=== PATIENT | male | born 1980 | race Caucasian/White ===

== ENCOUNTER 2020-01-24 17:47 | Inpatient (IN) | payer MEDICARE, MEDICAID, SELFPAY ==
[2020-01-24] VITALS (8 sets, daily range): BP systolic 108–154; BP diastolic 69–94; PULSE 88–111; RESP 18–23; TEMP 36.6–36.9; O2SAT 91–100; BMI 36.1
--- NOTE | 2020-01-24 17:57 | ECG_ITS ---
[facility] Test Date: 2020-01-24 Pat Name: Lobito Webber Department: Room: Gender: Male [employer] Retail: : 1980 Requested By: Raheem Maddox Order Number: [id number] Richie MD: Mona Cuellar M.D. Measurements Intervals [place] Rate: 108 P: 35 IA: 136 QRS: 77 QRSD: 89 T: 32 QT: 324 QTc: 436 Interpretive Statements SINUS TACHYCARDIA POSSIBLE LEFT ATRIAL ENLARGEMENT [-0.1mV P WAVE IN V1/V2] POSSIBLE INFERIOR MYOCARDIAL INFARCTION , OF INDETERMINATE AGE [30 ms Q WAVE IN II/aVF] ANTEROSEPTAL MYOCARDIAL INFARCTION , OF INDETERMINATE AGE [40+ ms Q WAVE IN V1-V4] Compared to ECG 05/25/2019 00:46:33 Sinus rhythm no longer present Myocardial infarct finding still present Electronically Signed On 01-24-2020 20:35:07 CDT by Mona Cuellar M.D. [id number]
--- NOTE | 2020-01-24 17:58 | XR_ITS ---
WS: [id number] Portable AP upright chest, 01/24/2020 Clinical Data: cp Comparison: Portable chest, 05/29/2019. Findings: No nodules, masses or effusions are seen. The heart is normal. The pulmonary vascularity is not increased. No pneumonia or pneumothorax is seen. Monitor leads are on the chest wall. XR/XR chest 1V portable [id number] Impression: Negative chest.
[2020-01-24 18:02] LABS: Glucose Point of Care 131 mg/dL (70-110)
[2020-01-24 18:13] LABS: Basophils # 0.1 10^3/uL (0.0-0.1); Basophils % 0.5 %; Eosinophils # 0.2 10^3/uL (0.0-0.8); Eosinophils % 0.8 %; Lymphocytes # 2.5 10^3/uL (0.8-4.8); Lymphocytes % 12.5 %; Mean Corpuscular HGB Conc 32.1 g/dL (30.0-36.0); Mean Corpuscular Volume 87.1 fL (80-94); Mean Platelet Volume 10.4 fL (7.4-10.4); Monocytes # 1.3 10^3/uL (0.2-0.9); Monocytes % 6.4 %; Neutrophils # 15.51 10^3/uL (1.8-7.7); Nucleated Red Blood Cells % 0 %; Platelet Count 285 10^3/cmm (130-400); Red Blood Count 6.43 10^6/uL (4.1-5.3); Red Cell Distribution Width 14.6 % (12.1-15.1); White Blood Count 19.6 10^3/uL (4.0-10.0)
--- NOTE | 2020-01-24 18:24 | ED_ITS ---
HPI - Chest Pain General: Chief Complaint: Chest Pain Stated Complaint: STEMI Time Seen by Provider: 01/24/20 17:57 Source: patient and EMS Mode of arrival: EMS Limitations: no limitations History of Present Illness: HPI narrative: 39-year-old male who has a history of coronary artery disease and had stents in the past. Patient states he started having chest pain today in the center of his chest along with some diaphoresis. Patient's pain is since resolved with nitro by EMS. Patient also received aspirin. Patient states he was seen at [facility] 3 days ago and they stopped his Plavix as a organist and him to a surgeon to have his gallbladder checked out. He states he is not taking his Plavix in 3 days. complaint: chest pain Onset (ago): hour(s) Associated symptoms: Deny abdominal pain, dyspnea, fever(s), nausea or vomiting Review of Systems Const: Denies: fever(s), chills, body aches or change in appetite Eyes: Denies: blurry vision or eye discomfort ENMT: Denies: throat pain or dental pain Card: Reports: chest pain Resp: Denies: dyspnea GI: Denies: abdominal pain, nausea, vomiting or diarrhea : Denies: dysuria Musc: Denies: neck pain or back pain Skin/Breast: Denies: rash Neuro: Denies: headache(s) Psych: Denies: depression Jordan/Lymph: Denies: easy bruising All/Imm: Denies: urticaria PFSH ED PFSH: Medical History (Updated 01/24/20 @ 21:23 by Javier Handy MD) Chronic GERD Coronary artery disease Diabetes Familial xanthomatosis Heart failure with reduced ejection fraction Hernia Hyperlipemia Hypertension Irritable bowel syndrome Myocardial infarction Stating that he was 19 years of age, cause unknown Nephrolithiasis Polysubstance abuse Sleep apnea Tobacco abuse Surgical History (Updated 01/24/20 @ 21:23 by Javier Handy MD) S/P cardiac cath 01/2019 100% occlusion of LAD proximal LAD Stented coronary artery January 2019, stent in LAD Family History (Updated 01/24/20 @ 21:23 by Javier Handy MD) Other Hyperlipidemia Hypertension Social History (Updated 01/24/20 @ 21:24 by Javier Handy MD) Smoking and tobacco status: light tobacco smoker cigarettes [ Other cigarette details: 1 pack/day for last 20 years ] Alcohol intake: current Substance/Drug Use: former Household members: spouse Housing: House Physical Exam Const: COMMON NORMALS: no acute distress, patient oriented x3 and healthy appearing HENMT: COMMON NORMALS: normocephalic and atraumatic HEAD & SCALP: normocephalic and atraumatic Eye: COMMON NORMALS: Equal, round and reactive pupils present and EOMs intact bilaterally PUPIL: Yes Equal, round and reactive pupils present Neck/C-Spine: COMMON NORMALS: full ROM and supple Chest: COMMONS NORMALS: normal inspection of the chest and normal palpation of entire chest wall Resp: COMMON NORMALS: normal respiratory effort, No retractions, No use of accessory muscles and clear to auscultation bilaterally AUSCULTATION: clear to auscultation bilaterally Cardio: COMMON NORMALS: regular rate, regular rhythm and No murmurs present (Cardio) RATE: regular rate RHYTHM: regular rhythm GI: COMMON NORMALS: Normal to inspection, nondistended, normoactive bowel sounds present, Soft to palpation, non-tender and no masses PALPATION: Yes Soft to palpation Extremity: COMMON NORMALS: normal to inspection and full ROM Neuro: COMMON NORMALS: patient oriented x3, moves all extremities and no focal motor deficits Psych: COMMON NORMALS: mental status grossly normal, Normal thought process present and cooperative THOUGHT PROCESS: Normal thought process present Skin: COMMON NORMALS: no rashes or lesions noted and no wounds GENERAL SKIN EXAM: no rashes or lesions noted Course Vital Signs: Vital signs: Vital Signs Temperature 98.4 F 01/24/20 17:48 Pulse Rate 88 01/24/20 20:00 Respiratory Rate 18 01/24/20 21:00 Blood Pressure 136/84 01/24/20 20:00 Pulse Oximetry 98 01/24/20 20:00 MDM - Chest Pain MDM Narrative: Medical decision making narrative: Patient presents here with a non-ST elevation PA. Patient had a delta change of 19 on the second troponin. EKGs here are normal. Patient has no abdominal pain. He does have a slight leukocytosis but no signs of infection. I spoke to hospitalist will admit at t his time. Lab Data: Labs: Lab Results 01/24/20 01/24/20 01/24/20 Range/Units 17:57 17:59 17:59 WBC 19.6 H (4.0-10.0) 10^3/ uL RBC 6.43 H (4.1-5.3) 10^6/u L Hgb 18.0 H (11.7-16.6) g/dL Hct 56.0 H (42.0-52.0) % MCV 87.1 (80-94) fL MCH 28.0 (28.0-34.0) pg MCHC 32.1 (30.0-36.0) g/dL RDW 14.6 (12.1-15.1) % Plt Count 285 (130-400) 10^3/c mm MPV 10.4 (7.4-10.4) fL Neut % (Auto) 79.0 % Lymph % (Auto) 12.5 % [place] % (Auto) 6.4 % Eos % (Auto) 0.8 % Baso % (Auto) 0.5 % Neut # (Auto) 15.51 H (1.8-7.7) 10^3/u L Lymph # (Auto) 2.5 (0.8-4.8) 10^3/u L [place] # (Auto) 1.3 H (0.2-0.9) 10^3/u L Eos # (Auto) 0.2 (0.0-0.8) 10^3/u L Baso # (Auto) 0.1 (0.0-0.1) 10^3/u L Nucleated RBC % (a uto) 0 % Nucleated RBCs # 0.0 /100WBC PT (10.5-13.3) SECO NDS INR (0.8-1.2) Sodium 138 (136-145) mmol/L Potassium 3.7 (3.5-5.1) mmol/L Chloride 103 (98-107) mmol/L Carbon Dioxide 19 L (22-29) mmol/L Anion Gap 19.7 H (5-19) BUN 14 (6-20) mg/dL Creatinine 0.9 (0.7-1.2) mg/dL GFR Calculation 93.5 (90-130) mL/min Glucose 127 H (65-115) mg/dL POC Glucose 131 (70-110) mg/dL Calculated Osmolal ity 284 L (285-295) mOsm/k g Calcium 9.6 (8.5-10.5) mg/dL Total Bilirubin 0.4 (0.15-1.2) mg/dL AST 14 (0-40) U/L ALT 18 (0-41) U/L Alkaline Phosphata se 83 (40-130) IU/L Troponin T Baselin e (0-15) ng/L Troponin T 120 Min [place] (0-15) ng/L Delta Troponin T (0-10) ABS# Total Protein 7.2 (6.6-8.7) g/dL Albumin 4.7 (3.5-5.2) g/dL Globulin 2.5 (1.3-4.6) g/dL Lipase 30 (13-60) U/L Urine Color (Yellow) Urine Appearance (CLEAR) Urine pH (5-7) Ur Specific Gravit y (1.005-1.030) Urine Protein (Negative) Urine Glucose (UA) (Normal) Urine Ketones (Negative) Urine Blood (Negative) Urine Nitrate (Negative) Urine Bilirubin (NEGATIVE) Urine Urobilinogen (Negative) mg/dL Ur Leukocyte Jolly ase (Negative) 01/24/20 01/24/20 01/24/20 Range/Units 17:59 17:59 19:40 WBC (4.0-10.0) 10^3/ uL RBC (4.1-5.3) 10^6/u L Hgb (11.7-16.6) g/dL Hct (42.0-52.0) % MCV (80-94) fL MCH (28.0-34.0) pg MCHC (30.0-36.0) g/dL RDW (12.1-15.1) % Plt Count (130-400) 10^3/c mm MPV (7.4-10.4) fL Neut % (Auto) % Lymph % (Auto) % [place] % (Auto) % Eos % (Auto) % Baso % (Auto) % Neut # (Auto) (1.8-7.7) 10^3/u L Lymph # (Auto) (0.8-4.8) 10^3/u L [place] # (Auto) (0.2-0.9) 10^3/u L Eos # (Auto) (0.0-0.8) 10^3/u L Baso # (Auto) (0.0-0.1) 10^3/u L Nucleated RBC % (a uto) % Nucleated RBCs # /100WBC PT 13.00 (10.5-13.3) SECO NDS INR 0.95 (0.8-1.2) Sodium (136-145) mmol/L Potassium (3.5-5.1) mmol/L Chloride (98-107) mmol/L Carbon Dioxide (22-29) mmol/L Anion Gap (5-19) BUN (6-20) mg/dL Creatinine (0.7-1.2) mg/dL GFR Calculation (90-130) mL/min Glucose (65-115) mg/dL POC Glucose (70-110) mg/dL Calculated Osmolal ity (285-295) mOsm/k g Calcium (8.5-10.5) mg/dL Total Bilirubin (0.15-1.2) mg/dL AST (0-40) U/L ALT (0-41) U/L Alkaline Phosphata se (40-130) IU/L Troponin T Baselin e 9 (0-15) ng/L Troponin T 120 Min [place] 28.49 H (0-15) ng/L Delta Troponin T 19.49 H* (0-10) ABS# Total Protein (6.6-8.7) g/dL Albumin (3.5-5.2) g/dL Globulin (1.3-4.6) g/dL Lipase (13-60) U/L Urine Color (Yellow) Urine Appearance (CLEAR) Urine pH (5-7) Ur Specific Gravit y (1.005-1.030) Urine Protein (Negative) Urine Glucose (UA) (Normal) Urine Ketones (Negative) Urine Blood (Negative) Urine Nitrate (Negative) Urine Bilirubin (NEGATIVE) Urine Urobilinogen (Negative) mg/dL Ur Leukocyte Jolly ase (Negative) 01/24/20 Range/Units 19:45 WBC (4.0-10.0) 10^3/ uL RBC (4.1-5.3) 10^6/u L Hgb (11.7-16.6) g/dL Hct (42.0-52.0) % MCV (80-94) fL MCH (28.0-34.0) pg MCHC (30.0-36.0) g/dL RDW (12.1-15.1) % Plt Count (130-400) 10^3/c mm MPV (7.4-10.4) fL Neut % (Auto) % Lymph % (Auto) % [place] % (Auto) % Eos % (Auto) % Baso % (Auto) % Neut # (Auto) (1.8-7.7) 10^3/u L Lymph # (Auto) (0.8-4.8) 10^3/u L [place] # (Auto) (0.2-0.9) 10^3/u L Eos # (Auto) (0.0-0.8) 10^3/u L Baso # (Auto) (0.0-0.1) 10^3/u L Nucleated RBC % (a uto) % Nucleated RBCs # /100WBC PT (10.5-13.3) SECO NDS INR (0.8-1.2) Sodium (136-145) mmol/L Potassium (3.5-5.1) mmol/L Chloride (98-107) mmol/L Carbon Dioxide (22-29) mmol/L Anion Gap (5-19) BUN (6-20) mg/dL Creatinine (0.7-1.2) mg/dL GFR Calculation (90-130) mL/min Glucose (65-115) mg/dL POC Glucose (70-110) mg/dL Calculated Osmolal ity (285-295) mOsm/k g Calcium (8.5-10.5) mg/dL Total Bilirubin (0.15-1.2) mg/dL AST (0-40) U/L ALT (0-41) U/L Alkaline Phosphata se (40-130) IU/L Troponin T Baselin e (0-15) ng/L Troponin T 120 Min [place] (0-15) ng/L Delta Troponin T (0-10) ABS# Total Protein (6.6-8.7) g/dL Albumin (3.5-5.2) g/dL Globulin (1.3-4.6) g/dL Lipase (13-60) U/L Urine Color Yellow (Yellow) Urine Appearance Clear (CLEAR) Urine pH 5 (5-7) Ur Specific Gravit y 1.025 (1.005-1.030) Urine Protein Neg (Negative) Urine Glucose (UA) 4+ H (Normal) Urine Ketones 1+ H (Negative) Urine Blood Neg (Negative) Urine Nitrate Negative (Negative) Urine Bilirubin Neg (NEGATIVE) Urine Urobilinogen Neg (Negative) mg/dL Ur Leukocyte Jolly ase Negative (Negative) Imaging Data^: CXR: Attestation: I personally reviewed and interpreted this imaging study as follows: My impression: no acute abnormality EKG Data^: EKG 1: Attestation: I personally reviewed and interpreted this EKG as follows: EKG interpretation date: 01/24/20 EKG interpretation time: 18:00 Interpretation: sinus tach hr [address] or t wave changes compared to old ekg qrs 89 qtc 388 EKG 2: Attestation: I personally reviewed and interpreted this EKG as follows: EKG interpretation date: 01/24/20 EKG interpretation time: 20:07 Interpretation: nsr hr [address] or t wave abnormalities qrs 92 qtc 398 Discharge Plan Discharge Admit Provider: Javier Handy Coding Level of Care Code ED Air Shovel Operator for Chg Fwd Exam Comprehensive
[2020-01-24 18:35] LABS: INR 0.95 (0.8-1.2)
[2020-01-24] MEDS: sodium chloride 0.9% 1,000 ML 75 ML IV (18:35)
[2020-01-24 18:44] LABS: Alanine Aminotransferase 18 U/L (0-41); Albumin Level 4.7 g/dL (3.5-5.2); Alkaline Phosphatase 83 IU/L (40-130); Anion Gap 19.7 (5-19); Aspartate Amino Transferase 14 U/L (0-40); Blood Urea Nitrogen 14 mg/dL (6-20); Calcium 9.6 mg/dL (8.5-10.5); Carbon Dioxide 19 mmol/L (22-29); Chloride 103 mmol/L (98-107); Globulin 2.5 g/dL (1.3-4.6); Glomerular Filtration Rate 93.5 mL/min (90-130); Glucose 127 mg/dL (65-115); Lipase 30 U/L (13-60); Osmolality Calculated 284 mOsm/kg (285-295); Potassium 3.7 mmol/L (3.5-5.1); Sodium 138 mmol/L (136-145); Total Bilirubin 0.4 mg/dL (0.15-1.2); Total Protein 7.2 g/dL (6.6-8.7); Troponin(5th) Baseline 9 ng/L (0-15)
--- NOTE | 2020-01-24 19:58 | ECG_ITS ---
[facility] Test Date: 2020-01-24 Pat Name: Lobito Webber Department: Room: 105 Gender: Male Graduate Student: : 1980 Requested By: Raheem Maddox Order Number: [id number] Richie MD: Isaias Coronel M.D. Measurements Intervals [place] Rate: 89 P: 53 [place]: 163 QRS: 73 QRSD: 92 T: 77 QT: 352 QTc: 428 Interpretive Statements SINUS RHYTHM ANTERIOR MYOCARDIAL INFARCTION , OF INDETERMINATE AGE [40+ ms Q WAVE AND/OR ST/T ABNORMALITY IN V3/V4] Compared to ECG 01/24/2020 18:00:48 Sinus tachycardia no longer present Myocardial infarct finding still present Electronically Signed On 01-25-2020 17:08:40 CDT by Isaias Coronel M.D. [id number]
[2020-01-24 20:03] LABS: Add Urine Microscopic? NO
--- NOTE | 2020-01-24 20:04 | PC.NURSE ---
ekg done 1958 and shown to ER doctor
[2020-01-24 20:15] LABS: Bilirubin Urine Neg (NEGATIVE); Blood Urine Neg (Negative); Glucose Urine UA 4+ (Normal); Ketones Urine 1+ (Negative); Leukocyte Esterase Urine Negative (Negative); Nitrate Urine Negative (Negative); Protein Urine Neg (Negative); Specific Gravity, Urine 1.025 (1.005-1.030); Urine Appearance Clear (CLEAR); Urine Color Yellow (Yellow); Urobilinogen Urine Neg (Negative); pH Urine 5 (5-7)
[2020-01-24 20:20] LABS: Troponin 5 2HR 28.49 ng/L (0-15)
[2020-01-24 20:27] LABS: Troponin 5 2HR Delta 19.49 ABS# (0-10)
--- NOTE | 2020-01-24 20:27 | PC.NURSE ---
19.49 DELTA TROP REPORTED VIA DUC IN LAB.
--- NOTE | 2020-01-24 21:00 | PM.HP ---
Providers/Chief Complaint Primary Care Provider: Mona Cuellar MD Chief Complaint: STEMI History of Present Illness Lobito Webber is a 39 year old male who has established coronary disease status post stent LAD January 2019, familial dyslipidemia, history of ID in his early 20s, coming in today with chief complaint of chest pain. Patient is stating that he was working outside in his tractor and after his work he was resting in his chair around 4 PM when he started experiencing substernal chest pain, he would describe it as pressure-like sensation radiating towards his shoulder blades and both arms with some numbness in his fingers, he did not notice any diaphoresis, nausea or vomiting. Patient lasted for about 4 hours until he arrived in the ER and received sublingual nitroglycerin and full dose aspirin. Patient is stating that this chest pain is similar to the one when he had stent placed. Is denying shortness of breath, orthopnea, PND. He smoking 1 pack/day, denies cocaine or IV drug abuse. Fairly active for his age. For last couple of days he has stopped taking his metformin and Plavix, there was some consideration for cholecystitis. Diagnostics in the ER revealed Normal hemodynamics, significant delta troponin, currently patient is chest pain-free, EKG showing chronic infarct changes in anterior leads He has received therapeutic dose of Lovenox, I would start him on loading dose of Plavix, start Lovenox Case discussed with Dr. Coronel who will evaluate him in the morning For his bradycardia he follow-up with Dr. Cuellar, as per the patient no cause of bradycardia has been established. Currently heart rate is in 80s normal sinus rhythm. Review of Systems Const: Denies: fever(s), chills or body aches Eyes: Denies: change in vision ENMT: Denies: throat pain Card: Reports: chest pain and dyspnea on exertion; Denies: irregular heart rhythm or orthopnea Resp: Denies: dyspnea GI: Denies: abdominal pain, nausea or vomiting : Denies: flank pain Musc: Denies: neck pain Skin/Breast: Denies: rash Neuro: Denies: headache(s) Psych: Denies: anxiety Endo: Denies: polyuria Jordan/Lymph: Denies: easy bruising All/Imm: Denies: urticaria Medications/Allergies Home Medications Medication Instructions Recorded Confirmed Last Taken Type aspirin 81 mg tablet,delayed 81 mg PO DAILY tab 07/12/19 01/24/20 01/24/20 History release carvedilol 3.125 mg tablet 3.125 mg PO BID 07/12/19 01/24/20 01/24/20 History clopidogrel 75 mg tablet 75 mg PO DAILY tab 07/12/19 01/24/20 01/21/20 History fenofibrate nanocrystallized 145 145 mg PO DAILY tab 07/12/19 01/24/20 01/24/20 History mg tablet furosemide 20 mg tablet 20 mg PO QAM PRN 07/12/19 01/24/20 Unknown History metformin 500 mg tablet 1,000 mg PO DAILY 07/12/19 01/24/20 01/21/20 History nitroglycerin 0.4 mg sublingual 0.4 mg SUBLINGUAL Q5M 07/12/19 01/24/20 01/24/20 History tablet potassium chloride 20 mEq 20 meq PO DAILY tab 07/12/19 01/24/20 Unknown History tablet,extended release(part/cryst) simvastatin 10 mg tablet 10 mg PO DAILY tab 07/12/19 01/24/20 01/24/20 History empagliflozin 10 mg tablet 10 mg PO QAM #90 tab 09/20/19 01/24/20 01/24/20 Rx losartan 25 mg tablet 25 mg PO DAILY #90 tab 11/24/19 01/24/20 01/24/20 Rx omeprazole 20 mg PO DAILY 01/24/20 01/24/20 01/24/20 History sertraline 50 mg PO DAILY 01/24/20 01/24/20 01/24/20 History Allergies Allergy/AdvReac Type Severity Reaction Status Date / Time lisinopril Allergy cough Verified 01/24/20 21:46 PFSH Acute PFSH: Medical History Bradycardia Cholelithiasis Chronic GERD Coronary artery disease Diabetes Familial xanthomatosis Heart failure with reduced ejection fraction Hernia Hyperlipemia Hypertension Irritable bowel syndrome Myocardial infarction Stating that he was 19 years of age, cause unknown Nephrolithiasis Polysubstance abuse Pulmonary nodule 6 mm Sleep apnea Spleen enlarged Tobacco abuse Surgical History S/P cardiac cath 01/2019 100% occlusion of LAD proximal LAD Stented coronary artery January 2019, stent in LAD Family History Other Hyperlipidemia Hypertension Social History Smoking and tobacco status: light tobacco smoker cigarettes [ Other cigarette details: 1 pack/day for last 20 years ] Alcohol intake: current Substance/Drug Use: former Household members: spouse Housing: House Vitals/I&O/Wt Last Vital Signs Temp 98.4 F 01/24/20 17:48 Pulse 88 01/24/20 20:00 Resp 20 H 01/24/20 20:00 BP 136/84 01/24/20 20:00 Pulse Ox 98 01/24/20 20:00 Weight last 48 hrs Weight 107.955 kg Physical Exam Narrative: EXAM NARRATIVE: Patient sitting in his bed without any active chest pain No active respiratory distress Abdomen soft nontender nondistended bowel sound present negative Ortiz sign S1, S2 no signs of tachycardia bradycardia or heart failure No positive JVD appreciated Neurologically nonfocal exam GCS 15 EOMI, PERRLA Bilateral breath sounds without any adventitious sounds No ischemia getting ulcer of lower extremities Saturating well on room air Xanthomas around eyelids bilaterally Data : 01/24/20 17:59 01/24/20 17:59 A&P Assessment and plan (1) NSTEMI (non-ST elevated myocardial infarction): Status: Acute (2) Familial xanthomatosis: Status: Acute (3) Nicotine dependence: Status: Acute Additional A&P Information Non-ST segment elevation ID Typical chest pain substernal relieved with nitro lasted for about 4 hours, history of established coronary disease, family history positive, chest pain radiating towards his shoulder blades without any radial radial delay, no hemodynamic compromise Case discussed with Dr. Coronel who will evaluate him in the morning Significant delta troponin without new ischemic EKG changes, Therapeutic dose of Lovenox given, loading dose of Plavix given, I will keep him n.p.o. in case he would require an angiogram in the morning Would obtain U tox Nicotine dependence: Counseled on smoking cessation explained benefits Familial xanthomas: Patient is on statin and fenofibrate regimen Full code N.p.o. 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
[2020-01-24] MEDS: enoxaparin 100 mg/mL Syringe SUBCUT (21:24)
--- NOTE | 2020-01-24 21:51 | ECG_ITS ---
[facility] Test Date: 2020-01-25 Pat Name: Lobito Webber Department: Room: 105 Gender: Male Business Support Assistant: : 1980 Requested By: Javier Handy Order Number: [id number] Richie MD: Isaias Coronel M.D. Measurements Intervals [place] Rate: 84 P: 48 VT: 154 QRS: 68 QRSD: 94 T: 63 QT: 357 QTc: 424 Interpretive Statements SINUS RHYTHM ANTEROLATERAL MYOCARDIAL INFARCTION [40+ ms Q WAVE IN I/aVL/V3-V6], OF INDETERMINATE AGE Compared to ECG 01/24/2020 20:07:44 No significant changes Electronically Signed On 01-25-2020 17:08:45 CDT by Isaias Coronel M.D. [id number]
--- NOTE | 2020-01-24 21:54 | PC.NURSE ---
Patient arrived to the floor after report was received via phone from ED. Patient is alert and oriented and ambulatory. Patient is on room air. Dr. Handy notified of patient complaining of heartburn and asking for something for heartburn that he states he has had for a few days. Dr. Handy also notified of patient complaining of pain 5/10 between the shoulder blades. Patient has been oriented to his room and call light within reach. Will monitor.
--- NOTE | 2020-01-24 22:01 | PC.NURSE ---
Patient states I always have chest pain, but it got worse today. Patient states my oxygen dips at night. I was set up to have a sleep study, but they canceled on me or something, I can't remember.
[2020-01-24 22:06] LABS: D Dimer 0.29 ug/mIFEU (0-0.59)
--- NOTE | 2020-01-24 22:07 | PC.NURSE ---
Dr. Hadny notified of patient received 100 mg of Lovenox in ED. There is 110 mg dose due for now. Ordered to change dose to start in the morning.
[2020-01-24] MEDS: clopidogrel 300 mg Tablet PO (22:11)
[2020-01-24] MEDS: atorvastatin 40 mg Tablet 80 MG PO (22:51)
[2020-01-24] MEDS: nitroglycerin 0.4 mg sublingual Tablet SUBLINGUAL (22:52)
[2020-01-24] MEDS: lidocaine 2% viscous 15 ML, aluminum-mag hydrox-simethicon 30 ML, sucralfate oral liq 1 GM PO (22:52)
[2020-01-25] VITALS (50 sets, daily range): BP systolic 93–131; BP diastolic 53–89; PULSE 68–89; RESP 16–28; TEMP 36.5–37; O2SAT 90–97
[2020-01-25 00:24] LABS: Troponin 5 6HR 154.4 ng/L (0-15); Troponin 5 6HR Delta 145.4 ng/L (0-12)
--- NOTE | 2020-01-25 01:56 | PC.NURSE ---
Patient was asked if he is still in pain and states no. Patient states I'm just really craving a cigarette. Patient has been educated on hospital smoking policy and verbalized understanding. Patient refused nicotine patch stating, I need to try to quit on my own this time.
[2020-01-25 05:55] LABS: Anion Gap 14.7 (5-19); Blood Urea Nitrogen 15 mg/dL (6-20); Calcium 8.9 mg/dL (8.5-10.5); Carbon Dioxide 22 mmol/L (22-29); Chloride 102 mmol/L (98-107); Glomerular Filtration Rate 124.9 mL/min (90-130); Glucose 116 mg/dL (65-115); Osmolality Calculated 277 mOsm/kg (285-295); Potassium 3.7 mmol/L (3.5-5.1); Sodium 135 mmol/L (136-145)
[2020-01-25 06:03] LABS: Basophils # 0.1 10^3/uL (0.0-0.1); Basophils % 0.5 %; Eosinophils # 0.2 10^3/uL (0.0-0.8); Eosinophils % 1.5 %; Hematocrit 51.5 % (42.0-52.0); Hemoglobin 16.3 g/dL (11.7-16.6); Lymphocytes # 3.4 10^3/uL (0.8-4.8); Mean Corpuscular HGB Conc 31.7 g/dL (30.0-36.0); Mean Corpuscular Hemoglobin 27.6 pg (28.0-34.0); Mean Corpuscular Volume 87.3 fL (80-94); Mean Platelet Volume 11.1 fL (7.4-10.4); Monocytes # 1.1 10^3/uL (0.2-0.9); Monocytes % 8.7 %; Neutrophils # 8.17 10^3/uL (1.8-7.7); Neutrophils % 62.8 %; Nucleated Red Blood Cells % 0 %; Platelet Count 254 10^3/cmm (130-400); Red Cell Distribution Width 14.7 % (12.1-15.1)
[2020-01-25] MEDS: pantoprazole DR 40 mg Tablet PO (08:22)
[2020-01-25] MEDS: aspirin 81 mg EC Tablet PO (08:22)
[2020-01-25] MEDS: fenofibrate 145 mg Tablet PO (08:22)
[2020-01-25] MEDS: clopidogrel 75 mg Tablet PO (08:25)
[2020-01-25] MEDS: carvedilol 3.125 mg Tablet PO ×2 (08:25→17:10)
[2020-01-25] MEDS: losartan 50 mg Tablet 25 MG PO (08:25)
[2020-01-25] MEDS: enoxaparin 120 mg/0.8 mL Syringe 110 MG SUBCUT (08:27)
--- NOTE | 2020-01-25 09:11 | P.CONIM_ITS ---
Providers/Reason For Consult Consulting Physican/Specialty*: Cardiovascular medicine Reason for Consult*: Elevated troponin with chest pain Attending Physician: Tom Castro MD Primary Care Provider: Mona Cuellar MD History of Present Illness History of Present Illness Lobito Webber is a 39 year old male who has premature coronary artery disease. He was admitted last evening with chest discomfort which occurred at rest and went down both arms and then up to his jaw and through to his back. He cannot remember whether this was the same pain he had in January of last year when he had a stent placed to his LAD. The procedure done at that time was originally attempted through the right radial artery but difficulty placing the catheter it required them to switch to the right common femoral artery. His first troponin was 9, the second 28.4 and the third 254. He has some mild ST segment elevation in leads V1 through V4 but has a previous old anterior wall PR in this distribution. When he had a stent placed a year ago his LAD was occluded. He was admitted in February of last year with chest pain and then in April of last year with chest discomfort and hypoxic respiratory failure thought secondary to sleep apnea. He has been free of chest pain since he was in the emergency room. He remains free of pain this morning. He states that he has never really held down a job. He has been disabled. He does have a history of glucose intolerance, hypertensi on and currently is a smoker. Previously has had a history of polysubstance abuse including alcohol. Review of Systems General: Reports: 10 or more systems reviewed and unremarkable except in HPI and below Meds/Allergies Home Medications and Allergies Home Medications Medication Instructions Recorded Confirmed Last Taken Type aspirin 81 mg tablet,delayed 81 mg PO DAILY tab 07/12/19 01/24/20 01/24/20 History release carvedilol 3.125 mg tablet 3.125 mg PO BID 07/12/19 01/24/20 01/24/20 History clopidogrel 75 mg tablet 75 mg PO DAILY tab 07/12/19 01/24/20 01/21/20 History fenofibrate nanocrystallized 145 145 mg PO DAILY tab 07/12/19 01/24/20 01/24/20 History mg tablet furosemide 20 mg tablet 20 mg PO QAM PRN 07/12/19 01/24/20 Unknown History metformin 500 mg tablet 1,000 mg PO DAILY 07/12/19 01/24/20 01/21/20 History nitroglycerin 0.4 mg sublingual 0.4 mg SUBLINGUAL Q5M 07/12/19 01/24/20 01/24/20 History tablet potassium chloride 20 mEq 20 meq PO DAILY tab 07/12/19 01/24/20 Unknown History tablet,extended release(part/cryst) simvastatin 10 mg tablet 10 mg PO DAILY tab 07/12/19 01/24/20 01/24/20 History empagliflozin 10 mg tablet 10 mg PO QAM #90 tab 09/20/19 01/24/20 01/24/20 Rx losartan 25 mg tablet 25 mg PO DAILY #90 tab 11/24/19 01/24/20 01/24/20 Rx omeprazole 20 mg PO DAILY 01/24/20 01/24/20 01/24/20 History sertraline 50 mg PO DAILY 01/24/20 01/24/20 01/24/20 History Allergies Allergy/AdvReac Type Severity Reaction Status Date / Time lisinopril Allergy cough Verified 01/24/20 21:46 Current Medications Current Medications Generic Name Dose Route Start Last Admin Trade Name Freq PRN Reason Stop Dose Admin Aspirin 81 mg 01/25/20 09:00 01/25/20 08:22 Aspirin Ec PO 81 mg DAILY CAMI Administration Carvedilol 3.125 mg 01/25/20 09:00 01/25/20 08:25 Coreg PO 3.125 mg BID CAMI Administration Clopidogrel Bisulfate 75 mg 01/25/20 09:00 01/25/20 08:25 Plavix PO 75 mg DAILY CAMI Administration Enoxaparin Sodium 110 mg 01/24/20 21:51 01/25/20 08:27 Lovenox SUBCUT 110 mg Q12H CAMI Administration Fenofibrate 145 mg 01/25/20 09:00 01/25/20 08:22 Tricor PO 145 mg DAILY CAMI Administration Sodium Chloride 1,000 mls @ 75 mls/hr 01/24/20 18:00 01/24/20 18:35 Sodium Chloride 0.9% IV 75 mls/hr .[id number] CAMI Administration Losartan Potassium 25 mg 01/25/20 09:00 01/25/20 08:25 Cozaar PO 25 mg DAILY CAMI Administration Pantoprazole Sodium 40 mg 01/25/20 09:00 01/25/20 08:22 Protonix PO 40 mg DAILY CAMI Administration PFSH Acute PFSH: Medical History (Updated 01/25/20 @ 09:17 by Isaias Coronel MD) Bradycardia Cholelithiasis Chronic GERD Coronary artery disease Diabetes Familial xanthomatosis Heart failure with reduced ejection fraction Hernia Hyperlipemia Hypertension Irritable bowel syndrome Myocardial infarction Stating that he was 19 years of age, cause unknown Nephrolithiasis Polysubstance abuse Pulmonary nodule 6 mm Sleep apnea Spleen enlarged Tobacco abuse Surgical History (Updated 01/25/20 @ 09:17 by Isaias Coronel MD) S/P cardiac cath 01/2019 100% occlusion of LAD proximal LAD Stented coronary artery January 2019, stent in LAD Family History Other Hyperlipidemia Hypertension Social History Smoking and tobacco status: light tobacco smoker cigarettes [ Other cigarette details: 1 pack/day for last 20 years ] Alcohol intake: current Substance/Drug Use: former Household members: spouse Housing: House Vitals/I&O/Wt Last Vital Signs Temp 97.7 F 01/25/20 07:30 Pulse 76 01/25/20 07:30 Resp 16 01/25/20 07:30 BP 127/78 01/25/20 08:25 Pulse Ox 96 01/25/20 07:30 01/24/20 01/25/20 01/25/20 22:59 06:59 14:59 Intake Total 600 / 600 Balance 600 / 600 Weight last 48 hrs Weight 238 lb Physical Exam Narrative: EXAM NARRATIVE: GENERAL: In general he is comfortable at rest, free of pain and looks well HEENT: Exam within normal limits. NECK: Supple without jugular vein distention. The carotid upstroke is normal without bruits. BACK: Exam normal. LUNGS: Clear. HEART: Regular rate and rhythm. ABDOMEN: Benign without organomegaly or tenderness. EXTREMITIES: No edema. NEUROLOGIC: Exam normal. SKIN: Unremarkable. A&P Assessment and plan (1) Familial xanthomatosis: Status: Acute (2) NSTEMI (non-ST elevated myocardial infarction): Status: Acute (3) Nicotine dependence: Status: Acute (4) Coronary artery disease: Status: Acute (5) Diabetes: Status: Acute (6) Heart failure with reduced ejection fraction: Status: Acute (7) Hyperlipemia: Status: Acute (8) Hypertension: Status: Acute (9) Myocardial infarction: Status: Acute (10) Polysubstance abuse: Status: Acute (11) Sleep apnea: Status: Acute (12) Stented coronary artery: Status: Acute Additional A&P Information He needs coronary angiography. I suspect this is going to be the LAD based on his subtle EKG changes in the anterior precordial leads. We will arrange for that shortly. 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
--- NOTE | 2020-01-25 09:14 | XACV_ITS ---
Exam Room: [facility] Ht: 173 cm Wt: 108 kg BSA: 2.32 m2 Gender: Male : 1980 Exam Priority: Routine Indication(s): - NSTEMI Procedure(s): Procedure Description: Diagnostic procedure Procedure Description: PCI procedure Procedure Description: Left Heart Catheterization Procedure Description: Left ventriculography Procedure Description: Drug Eluting Coronary Stent Procedure Description: PTCA Procedure Description: Coronary Angiography Diagnostic Cath Status: Urgent Diagnostic Findings This is a young man age only 39 who has multiple risk factors and continues to smoke. A year ago he had a stent placed in his LAD because of an occluded vessel. At that time he had a myocardial infarction. He was taken off his Plavix and metformin about 4 days ago in anticipation of gallbladder surgery. He came in the hospital last evening with chest pain which was fairly typical and an elevated troponin. His EKG suggested either a aneurysmal formation of the anterior wall or a lesion in the LAD due to mild ST segment elevation. He was pain-free shortly after his arrival. His troponin is elevated. Angiography reveals right coronary artery dominance. Left main, circumflex, ramus and right coronary arteries are normal. The LAD is occluded within the stent. PCI Status: Urgent PCI LVEF Assessed: Yes PCI Indication: NSTE - ACS Interventional Findings The vessel is occluded and with some difficulty I was able to pass a wire through. A standard wire would not pass through the lesion however a run-through wire was successful. Following that plain old balloon angioplasty with a noncompliant balloon was done in several locations. There was still significant residual stenosis with thrombus inside the vessel. The vessel was ultimately stented with reestablishment of NAZIA-3 flow. There was a residual lesion just at the distal end of the original stent which could have contained a small dissection. I stented this with a short 4 mm stent. The end result was excellent with good flow. Decision for PCI with Surgical Consult: No PCI for Multi-vessel Disease: No Conclusions In-stent restenosis culminating in acute stent thrombosis after Plavix discontinued 4 days ago. Vessel was opened with a noncompliant balloon followed by restenting. Significant wall motion disturbance in the distribution of the LAD with aneurysmal formation in the apex and ejection fraction around 35%. I spoke to his over the telephone at the end of the procedure. Recommendations Medical treatment. If gallbladder surgery needs to be done the patient should be placed in the hospital on an Aggrastat drip for 3 or 4 days prior to gallbladder surgery. The Plavix should not be stopped under any circumstances. Interventional RX Recommendation: PCI w/o planned CABG Diagnostic RX Recommendation: PCI w/o planned CABG Anticoagulation: Heparin Ventriculography Ejection Fraction: 35.0 % Pressures Phase:Rest AO : 107 mmHg / 79 mmHg ( 93 mmHg ) @ 4:59:00 AM 124 mmHg / 77 mmHg ( 96 mmHg ) @ 5:04:00 AM 104 mmHg / 75 mmHg ( 90 mmHg ) @ 5:11:00 AM LV : 139 mmHg / -4 mmHg / @ 5:03:00 AM 134 mmHg / 1 mmHg / @ 5:04:00 AM 133 mmHg / 1 mmHg / @ 5:04:00 AM Valves Phase:DefaultPhase AV : 8.0 mmHg @ 10:36:36 AM AV Mean Gradient: 13.0 mmHg @ 10:36:36 AM Clinical Evaluation EBL: 5mL-10mL Procedural Details Procedure Consent Obtained. Current Diagnosis : NSTEMI. Pre-Procedure Time Out. Identified patient by full name and date of as verbalized by the patient/guarantor. Does the consent match the physician's order: Yes. Accurate & Complete Informed Consent: Yes. Inpatient/Outpatient History & Physical on Chart: Yes. If H&P is completed, is and addenduem needed: No. Visualize and Verify Site with Patient/Guarantor: N/A. Relevant Radiology Images available: Yes. The risks, benefits, and alternatives of sedation and/or procedure were discussed by physician. The patient agrees to continue. Procedure started. [facility] Clinical Fraility Score: 3: Managing Well. Supervisor Order Takers Indications: ACS <= 24 hours. Chest Pain Symptom Assessment: Typical Angina Symptoms. Cardiovascular Instability: No. Correct patient, site and procedure confirmed by cath team. Current diagnosis: NSTEMI. PERRLA. 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 Lungs clear x 5 lobes. IV Site on Arrival: 20 gauge in the right anticubital. IV Site on Arrival: 20 gauge in the left anticubital. IV Fluids: 0.9% NaCl at KVO. 0 mL infused prior to quality assurance qa lab technician. Pre Procedural Pulses: bilateral dorsalis pedis was 2+. Pre Procedural Pulses: bilateral posterior tibial was 2+. Pre Procedural Pulses: bilateral radial was 2+. Oxygen started at 2liters/min via nasal canula. bilateral groins was prepped with chloroprep then draped in the usual sterile fashion. Physician notified. Patient's family unavailable due to current Covid-19 restrictions. Equipment: 6F - Femoral. Cardiac Cath Pack. ACIST Manifold Kit Model BT 2000. Heparinized Saline (2 units/mL), 1000 mL bag. Physician arrived. Physician scrubbed in. Immediate Pre-Procedure Time Out. Correct Patient: Yes; Correct Procedure: Yes; Correct Site: Yes; Correct Patient Position: Yes; Correct Supplies: Yes; Dried Flammable Prep: Yes; Blood Products Available: N/A. Lidocaine 1% infiltrated to the right groin. Arterial access obtained. A 6 arabic JL4 catheter in over wire. Catheter inserted over the standard wire. Multiple views taken of left coronary artery. Catheter out. A CRD 6F JR4 100cm Diagnostic Catheter was advanced over the wire and used for Right coronary angiography. Multiple views taken of right coronary artery. A CRD 6F 145 degree Pigtail 110cm Diagnostic Catheter was advanced over the wire and used for Ventriculography. EDP Sample taken: LV 139/-5,17; HR: 89 BPM; SpO2: 95%. LV gram performed in MIRELES @ 10 mL/second for a total of 30 mL. EDP Sample taken: LV 134/1,20; HR: 87 BPM; SpO2: 96%. Pullback taken: LV 133/1,20; AO 124/77(96); Mean: 13mmHg, Peak to Peak: 8mmHg, SEP: 17sec/min; HR: 88 BPM; SpO2: 96%. Catheter out. Catheter out. PCI Indication: NSTE. 6 arabic XB 3.5 guide catheter was inserted over the wire. Dwight guidewire was advanced through the guide catheter to lesion in the prox LAD. Dwight guidewire out. Runthrough guidewire was advanced through the guide catheter to lesion in the prox LAD. Inflation number : 1 A MDT NC EUPHORA RX [id number] BALLOON was prepped and advanced across the Prox LAD , then inflated to 12 OBEY for 0:18 seconds. Inflation number: 2 The MDT NC EUPHORA RX [id number] BALLOON was reinflated across the Prox LAD, to 12 OBEY for 0:16 seconds. Inflation number: 3 The MDT NC EUPHORA RX [id number] BALLOON was reinflated across the Prox LAD, to 12 OBEY for 0:21 seconds. Inflation number: 4 The MDT NC EUPHORA RX [id number] BALLOON was reinflated across the Prox LAD, to 20 OBEY for 0:31 seconds. Inflation number: 5 The MDT NC EUPHORA RX [id number] BALLOON was reinflated across the Prox LAD, to 20 OBEY for 0:35 seconds. Balloon out. Inflation Number : 6 A MDT R SOCRATES 4.0X26 CHRISTIANNE -Lot Number# [id number] Exp. 08/14/21 was prepped and advanced across the Prox LAD. The stent was deployed at 12 OBEY for 0:48 seconds. Inflation Number : 7 A MDT R SOCRATES 4.0X08 CHRISTIANNE -Lot Number# [id number] Exp. 09/27/20 was prepped and advanced across the Prox LAD. The stent was deployed at 12 OBEY for 0:46 seconds. Stent balloon and wire out. Results checked. Wire out. Guide catheter out. Sheath(s) sutured into position with 2-0 silk and sterile 4x4's and Op-site applied over the site. No oozing or signs and symptoms of hematoma noted. Arterial sheath flushed and connected to tranducer and pressure bag with heparinized saline. Post Procedure: Pulses reassessed and unchanged. PERRLA. 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 No VTE prophylaxis required. Total IV fluids: 60.9 mL. Post-op diagnosis: NSTEMI for Prox LAD In-Stent Stenosis. Complications: none. Estimated blood loss: 5mL-10mL. A Suture was successful obtaining hemostatsis at the Right Femoral artery insertion site. Medication's Wasted: Heparin = 1000 units. Medication's Wasted: Lidocaine 1% = 10 mL. Medication's Wasted: Nitro = 50 mg. Patient transferred by bed to 1st floor. Procedure completed. Vital chart was stopped. Site: Right Femoral artery Sheath Size: 6 Fr Hemostasis Method: Suture Hemostasis Success: Successful Procedure Medications Start: 9:54 AM Stop: 9:54 AM Medication: Versed Amount: 1 mg Route: I.V. Start: 9:54 AM Stop: 9:54 AM Medication: Fentanyl Amount: 50 mcg Route: I.V. Start: 9:55 AM Stop: 9:55 AM Medication: Versed Amount: 1 mg Route: I.V. Start: 9:55 AM Stop: 9:55 AM Medication: Fentanyl Amount: 50 mcg Route: I.V. Start: 9:57 AM Stop: 9:57 AM Medication: Versed Amount: 1 mg Route: I.V. Start: 10:12 AM Stop: 10:12 AM Medication: Versed Amount: 1 mg Route: I.V. Start: 10:23 AM Stop: 10:23 AM Medication: Heparin Amount: 3000 units Route: I.V. Start: 10:12 AM Stop: 10:12 AM Medication: Fentanyl Amount: 50 mcg Route: I.V. Start: 10:25 AM Stop: 10:25 AM Medication: Fentanyl Amount: 25 mcg Route: I.V. I, the attending physician, have reviewed and verified all procedure medications. Yes, all medications given per verbal order History/Risk Factors Hypertension: Yes Dyslipidemia: Yes Diabetic Therapy: Oral Peripheral Arterial Disease (PAD): No Myocardial Infarction (HI): Yes Obesity: Yes Renal Disease: No Tobacco Use: Current/Recent(w/in 1 year) Prior Interventions PCI: Yes CABG: No Valve Surgery: No Date of PCI: 01/14/2019 Report Signatures Finalized by:Dr. Isaias Coronel MD on 01/25/2020 10:51:52 AM
--- NOTE | 2020-01-25 09:14 | PC.NURSE ---
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
[2020-01-25] MEDS: diphenhydrAMINE 50 mg Capsule PO (09:26)
[2020-01-25] MEDS: sodium chloride 0.9% 1,000 ML 50 ML IV (09:27)
--- NOTE | 2020-01-25 10:45 | PC.NURSE ---
Patient arrived back to floor from cath at 1045. 2 nurse verification of site. No hematoma or oozing noticed, connected to pressure bag. Neurovascular assessment WNL. Patient resting with eyes closed at this time. Nurse to continue to monitor.
[2020-01-25] MEDS: sodium chloride 0.9% 1,000 ML 100 ML IV (11:15)
--- NOTE | 2020-01-25 12:55 | P.PN_ITS ---
Subjective Subjective: Interval history: Lobito reports he has a little bit soreness after the angiogram but otherwise is doing okay. History and physical reviewed. Case discussed briefly with cardiology. Medications: Reviewed: Yes Vitals/I&O/Wt Last Vital Signs Temp 97.7 F 01/25/20 07:30 Pulse 86 01/25/20 12:15 Resp 18 01/25/20 11:03 BP 105/71 01/25/20 11:03 Pulse Ox 94 01/25/20 12:15 01/24/20 01/25/20 01/25/20 22:59 06:59 14:59 Intake Total 600 / 600 240 / 240 Balance 600 / 600 240 / 240 Weight last 48 hrs Weight 107.955 kg Physical Exam Narrative: EXAM NARRATIVE: General exam no apparent distress Cardiovascular regular rate and rhythm without murmur Lungs clear Abdomen is soft with positive bowel sounds Right groin without significant hematoma Extremities no cyanosis clubbing or edema. Data : 01/25/20 05:18 01/25/20 05:18 A&P Assessment and plan (1) NSTEMI (non-ST elevated myocardial infarction): Angiogram was performed this morning. He had an in-stent stenosis LAD, that was stented with a drug-eluting stent. Plavix reinitiated. Continue statin, aspirin, beta-kathie, ARB Status: Acute (2) Familial xanthomatosis: Continue fenofibrate High-dose statin was initiated Status: Acute (3) Nicotine dependence: Counseled 3 to 5 minutes during hospital stay Status: Acute Additional A&P Information Full code DVT prophylaxis with Lovenox. Attestations Medical Necessity Statement*: Needs continued hospital stay for close follow- up following angiogram with stenting secondary to non-ST elevation myocardial infarction. 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
--- NOTE | 2020-01-25 13:35 | PC.NURSE ---
Sheath pull Sheath pulled at 1318 per protocol. Pressure held for 20 minutes until hemostasis achieved. Patient tolerated well. Dressing applied, CDI. neurovascular assessment WNL. VS WNL. Nurse to continue to monitor.
[2020-01-25 16:36] LABS: Glucose Point of Care 93 mg/dL (70-110)
--- NOTE | 2020-01-25 16:41 | PC.NURSE ---
visitor at bedside.
[2020-01-25] MEDS: atorvastatin 40 mg Tablet 80 MG PO (20:33)
--- NOTE | 2020-01-25 20:39 | PC.NURSE ---
Pt found resting in bed. Right groin COA site with dressing in place, clean, dry, and intact. No hematoma present. No complaints of pain. Asssited to bathroom and ambulated in halls with this RN present. No complications noted. Right groin site without any changes. VSS. Denies any needs at this time.
--- NOTE | 2020-01-25 21:51 | USCV_ITS ---
Akbar Lobito Age: 39 Gender: M : 1980 Exam Date: 01/25/2020 05:39 Ordering Phys: Javier Handy MD Technologist: Catherine Velazquez Exam Location: [facility] [place] Indication: NSTEMI BP: 138 / 72 HR: 85 Rhythm: Sinus Technical Quality: Adequate MEASUREMENTS (Male / Female) Normal Values 2D ECHO LV Diastolic Diameter PLAX 4.6 cm 4.2 - 5.9 / 3.9 - 5.3 cm LV Systolic Diameter PLAX 3.3 cm LV Chamber Size 3.8 cm IVS Diastolic Thickness 1.2 cm 0.6 - 1.0 / 0.6 - 0.9 cm IVS Systolic Thickness 1.5 cm LVPW Diastolic Thickness 1.1 cm 0.6 - 1.0 / 0.6 - 0.9 cm LVPW Systolic Thickness 1.0 cm RV Chamber Size 2.4 cm LVOT Diameter 2.0 cm LV Ejection Fraction 2D Teich 54.1 % LV Ejection Fraction MOD 2C 33.9 % LV Ejection Fraction 2C AL 35.3 % LA Diameter 4.3 cm LA Width 2.6 cm LA Height 4.4 cm RA Width 2.8 cm RA Height 3.7 cm Aorta at Sinotubular Diameter 3.6 cm M-MODE LV Diastolic Diameter MM 4.0 cm 4.2 - 5.9 / 3.9 - 5.3 cm LV Systolic Diameter MM 3.3 cm LV Ejection Fraction MM Teich 38.3 % IVS Diastolic Thickness MM 0.8 cm 0.6 - 1.0 / 0.6 - 0.9 cm IVS Systolic Thickness MM 1.3 cm LVPW Diastolic Thickness MM 1.1 cm 0.6 - 1.0 / 0.6 - 0.9 cm LVPW Systolic Thickness MM 1.4 cm RV Diastolic Diameter MM 1.1 cm Aortic Annulus Diameter 3.8 cm LA Ao Ratio MM 1.1 MV E Point Septal Separation 0.4 cm DOPPLER AV Peak Velocity 139.0 cm/s LVOT Peak Velocity 92.0 cm/s AV Area Cont Eq vti 2.1 cm squared AV Area Cont Eq pk 2.1 cm squared MV Area PHT 5.0 cm squared Mitral E to A Ratio 0.7 MV E' Velocity 6.0 cm/s Mitral E to MV E' Ratio 9.7 Mitral E to LV E' Lateral Ratio 9.7 Mitral E to LV E' Septal Ratio 9.8 TR Peak Velocity 90.6 cm/s TR Peak Gradient 3.3 mmHg TR Mean Velocity 69.6 cm/s TR Mean Gradient 2.1 mmHg TR Velocity Time Integral 21.2 cm TV Peak E Velocity 65.0 cm/s Right Atrial Pressure 3.0 mmHg Pulmonary Artery Systolic Pressu 6.3 mmHg PV Peak Velocity 62.0 cm/s RV Acceleration Time 0.1 s RV Ejection Time 0.4 s RV AcT/ET 0.3 FINDINGS Left Ventricle Severe diffuse hypokinesia of the mid and apical septum, and the septum and the apical segments. The LV ejection fraction around 40%.Grade I/IV diastolic dysfunction (abnormal relaxation filling pattern), normal to mildly elevated filling pressures. Right Ventricle The right ventricle is normal in size and function. Right Atrium The right atrium is normal in size. Left Atrium Appears to be of normal size Mitral Valve Mildly thickened mitral valve. Some thickening in the posterior mitral leaflet Aortic Valve No gross abnormalities noted Tricuspid Valve No gross abnormalities noted.trace tricuspid valve regurgitation. Pulmonic Valve Not visualized well Pericardium No pericardial effusion. Aorta Normal ascending aorta dimension. CONCLUSIONS Severe diffuse hypokinesia of the mid and apical septum, and the septum and the apical segments. The LV ejection fraction around 40%.Grade I/IV diastolic dysfunction (abnormal relaxation filling pattern), normal to mildly elevated filling pressures. Mildly thickened mitral valve. Some thickening in the posterior mitral leaflet Trace tricuspid valve regurgitation. There is no pericardial effusion. There are no intracardiac masses. Compared to the previous study from 06/07/2019, there is some worsening of the LV systolic function, possibly from negative remodeling Dr Mona Cuellar MD FACC (Electronically Signed) Final Date: 28 January 2020 18:37 S
[2020-01-26 04:51] VITALS: BP 101/56; PULSE 70; RESP 16; TEMP 36.9; O2SAT 98
--- NOTE | 2020-01-26 04:52 | PC.NURSE ---
END OF SHIFT NOTE: Pt tolerated ambulating in the halls multiple times throughout shift. Pt anxious to go home this AM. Right groin site with dressing- clean, dry, and intact- and no hematoma present. HR 70s-80s SR on telemetry. No further needs or concerns at this time.
[2020-01-26 05:37] LABS: Basophils # 0.1 10^3/uL (0.0-0.1); Basophils % 0.4 %; Eosinophils # 0.3 10^3/uL (0.0-0.8); Eosinophils % 2.2 %; Hematocrit 51.7 % (42.0-52.0); Hemoglobin 16.5 g/dL (11.7-16.6); Lymphocytes # 2.9 10^3/uL (0.8-4.8); Lymphocytes % 21.4 %; Mean Corpuscular HGB Conc 31.9 g/dL (30.0-36.0); Mean Corpuscular Hemoglobin 27.8 pg (28.0-34.0); Monocytes % 7.7 %; Neutrophils # 9.15 10^3/uL (1.8-7.7); Neutrophils % 67.6 %; Nucleated Red Blood Cells % 0 %; Platelet Count 251 10^3/cmm (130-400); Red Blood Count 5.94 10^6/uL (4.1-5.3); Red Cell Distribution Width 14.8 % (12.1-15.1); White Blood Count 13.5 10^3/uL (4.0-10.0)
[2020-01-26 05:53] LABS: Anion Gap 13.9 (5-19); Blood Urea Nitrogen 22 mg/dL (6-20); Calcium 9.2 mg/dL (8.5-10.5); Carbon Dioxide 23 mmol/L (22-29); Chloride 103 mmol/L (98-107); Glomerular Filtration Rate 93.5 mL/min (90-130); Glucose 107 mg/dL (65-115); Osmolality Calculated 279 mOsm/kg (285-295); Potassium 3.9 mmol/L (3.5-5.1); Sodium 136 mmol/L (136-145)
--- NOTE | 2020-01-26 06:52 | P.PN_ITS ---
Subjective Subjective: Interval history: Patient underwent angiography yesterday. His LAD was occluded within the stent. This was likely restenosis with superimposed stent thrombosis probably brought on by discontinuation of the Plavix. He had both scar tissue and thrombus within the stent. I was able to open it and then restented it. He has good flow however has a significant wall motion disturbance in the distribution of the LAD. He has had an uneventful night. No problems with the entry site. Medications: Reviewed: Yes Vitals/I&O/Wt Last Vital Signs Temp 98.4 F 01/26/20 04:51 Pulse 70 01/26/20 04:51 Resp 16 01/26/20 04:51 BP 101/56 01/26/20 04:51 Pulse Ox 98 01/26/20 04:51 01/25/20 01/25/20 01/26/20 14:59 22:59 06:59 Intake Total 240 / 240 640 / 880 700 / 1580 Output Total 500 / 500 Balance 240 / 240 140 / 380 700 / 1080 Weight last 48 hrs Weight 243 lb 11.2 oz Weight 238 lb Physical Exam 2 Narrative: EXAM NARRATIVE: GENERAL: In general he looks and feels well HEENT: Exam within normal limits. NECK: Supple without jugular vein distention. The carotid upstroke is normal without bruits. BACK: Exam normal. LUNGS: Clear. HEART: Regular rate and rhythm. ABDOMEN: Benign without organomegaly or tenderness. EXTREMITIES: No edema. The right groin entry site is flat, dry without bleeding or hematoma. NEUROLOGIC: Exam normal. SKIN: Unremarkable. Data : 01/26/20 05:20 01/26/20 05:20 A&P Assessment and plan (1) Stented coronary artery: Status: Acute (2) Sleep apnea: Status: Acute (3) Polysubstance abuse: Status: Acute (4) Myocardial infarction: Status: Acute (5) Hypertension: Status: Acute (6) Hyperlipemia: Status: Acute (7) Heart failure with reduced ejection fraction: Status: Acute (8) Diabetes: Status: Acute (9) Coronary artery disease: Status: Acute (10) Nicotine dependence: Status: Acute (11) Familial xanthomatosis: Status: Acute (12) NSTEMI (non-ST elevated myocardial infarction): Status: Acute Additional A&P Information He may be discharged today. No lifting over 10 pounds for 2 days. He should see the nurse practitioner in our office in 7 to 10 days for right groin check and chemistry panel. He should follow-up with Dr. Cuellar his primary client account specialist in about 3 months. Medications upon discharge should be the medications he was admitted on that include low-dose aspirin, carvedilol, Plavix, Lasix on an as-needed basis, losartan and potassium. He should also take the statin. He should hold metformin for 2 days. He may reinstitute the metformin on Wednesday. Should he need the gallbladder removed within the next 6 months the Plavix may be stopped 5 days prior however he would need to be admitted to the hospital 3 to 4 days prior for an intravenous infusion of Aggrastat. The Aggrastat would then be discontinued 4 hours prior to the procedure. The patient should then be placed back on Plavix with a loading dose as soon as possible after the surgery is completed. 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
[2020-01-26 07:13] VITALS: BP 114/76; PULSE 77; RESP 13; TEMP 36.9; O2SAT 95
--- NOTE | 2020-01-26 07:29 | PM.DCS ---
Discharge Providers Date of Admission: 01/24/20 20:40 Date of Discharge: January 26, 2020 Attending Provider at Admission: Javier Handy MD Attending Provider at Discharge: Tom Castro MD Primary Care Provider: Mona Cuellar MD Diagnoses at Discharge Discharge Diagnosis (1) Stented coronary artery: Status: Acute Problem details: January 2019, stent in LAD January 25, 2020, CHRISTIANNE in in-stent stenosis LAD (2) Sleep apnea: Status: Acute (3) Polysubstance abuse: Status: Acute (4) Myocardial infarction: Status: Acute Problem details: Stating that he was 19 years of age, cause unknown (5) Hypertension: Status: Acute (6) Hyperlipemia: Status: Acute (7) Heart failure with reduced ejection fraction: Status: Acute (8) Diabetes: Status: Acute (9) Coronary artery disease: Status: Acute (10) Nicotine dependence: Status: Acute (11) Familial xanthomatosis: Status: Acute (12) NSTEMI (non-ST elevated myocardial infarction): Status: Acute Reason for Visit Reason for Visit: STEMI Hospital Course Hospital Course: Lobito is a 39-year-old male who presented to the hospital with chest discomfort, elevated troponin with a significant delta. He was given nitroglycerin, therapeutic Lovenox, and his home medicine was continued. He had recently stopped Plavix, for possible cholecystectomy. Cardiology was consulted. Angiogram was performed on January 24 demonstrating in-stent stenosis LAD. Drug-eluting stent was placed. The following day the patient was doing well, with a normal creatinine and no significant hematoma at angiogram site right groin. He was discharged home. He was counseled 3 to 5 minutes during his hospital stay regarding not smoking. Statin changed to high intensity, higher dose. Physical Exam Narrative: EXAM NARRATIVE: General exam no apparent distress Cardiovascular regular rate and rhythm without murmur Lungs clear Abdomen is soft with positive bowel sounds Extremities no cyanosis clubbing or edema, no significant hematoma right groin, distal right dorsalis pedis pulse intact. Discharge Data Data Completed and Pending: Completed Studies During Hospitalization Category Date Time Status ATLASSIAN ADMINISTRATOR request for service Routin e Exams 01/25/20 09:14 Completed XR chest 1V robert ble [id number] Stat Exams 01/24/20 17:58 Completed Pending at discharge Category Date Time Status CV echo complete* [id number] Routine Ultrasound 01/25/20 21:51 Taken Labs from last 24 hours 01/26/20 01/26/20 01/25/20 05:20 05:20 16:18 WBC 13.5 H RBC 5.94 H Hgb 16.5 Hct 51.7 MCV 87.0 MCH 27.8 L MCHC 31.9 RDW 14.8 Plt Count 251 MPV 10.0 Neut % (Auto) 67.6 Lymph % (Auto) 21.4 [place] % (Auto) 7.7 Eos % (Auto) 2.2 Baso % (Auto) 0.4 Neut # (Auto) 9.15 H Lymph # (Auto) 2.9 [place] # (Auto) 1.0 H Eos # (Auto) 0.3 Baso # (Auto) 0.1 Nucleated RBC % (a uto) 0 Nucleated RBCs # 0.0 Sodium 136 Potassium 3.9 Chloride 103 Carbon Dioxide 23 Anion Gap 13.9 BUN 22 H Creatinine 0.9 GFR Calculation 93.5 Glucose 107 POC Glucose 93 Calculated Osmolal ity 279 L Calcium 9.2 Vitals: Last Vital Signs Temp 98.4 F 01/26/20 07:13 Pulse 77 01/26/20 07:13 Resp 13 01/26/20 07:13 BP 114/76 01/26/20 07:13 Pulse Ox 95 01/26/20 07:13 Discharge Plan Discharge Patient Disposition: Home Condition: Stable Prescriptions: New atorvastatin 40 mg Tablet 80 mg PO BEDTIME Qty: 60 RF: 0 Continued nitroglycerin [Nitrostat] 0.4 mg tablet, sublingual 0.4 mg SUBLINGUAL Q5M RF: 0 carvedilol 3.125 mg tablet 3.125 mg PO BID RF: 0 potassium chloride [Klor-Con M20] 20 mEq tablet,ER particles/crystals 20 meq PO DAILY RF: 0 clopidogrel 75 mg tablet 75 mg PO DAILY RF: 0 fenofibrate nanocrystallized 145 mg tablet 145 mg PO DAILY RF: 0 furosemide 20 mg tablet 20 mg PO QAM PRN (Reason: Edema) RF: 0 metformin 500 mg tablet 1,000 mg PO DAILY RF: 0 aspirin 81 mg tablet,delayed release (DR/EC) 81 mg PO DAILY RF: 0 Jardiance 10 mg tablet 10 mg PO QAM Qty: 90 RF: 3 losartan 25 mg tablet 25 mg PO DAILY Qty: 90 RF: 0 omeprazole 20 mg capsule,delayed release(DR/EC) 20 mg PO DAILY RF: 0 sertraline 50 mg tablet 50 mg PO DAILY RF: 0 Discontinued simvastatin 10 mg tablet 10 mg PO DAILY RF: 0 Discharge Diet: Cardiac and Diabetic Discharge Activity: Increase activity as tolerated and Limit activity as instructed Activity Restrictions/Additional Instructions: Take all medicine as prescribed. Do not restart metformin until Wednesday No smoking Discharge Attestations Time Spent in Discharge Care*: greater than 30 min Quality Metrics Clinical Quality Measures During this hospital stay, did patient experience: AMI Clinical Trial Participant: No Contraindication to aspirin (AMI): Aspirin given Contraindication to statin: Statin prescribed Coding Level of Care Code Acute Nephrology Nurse for Chg Fwd Diagnoses Stented coronary artery Z95.5 Sleep apnea G47.30 Polysubstance abuse F19.10 Myocardial infarction I21.9 Hypertension I10 Hyperlipemia E78.5 Heart failure with reduced ejection fraction I50.20 Diabetes E11.9 Coronary artery disease I25.10 Nicotine dependence F17.200 Familial xanthomatosis E75.5 NSTEMI (non-ST elevated myocardial infarction) I21.4
[2020-01-26 08:10] VITALS: BP 114/76; PULSE 77; RESP 13; TEMP 36.9; O2SAT 95
[2020-01-26] MEDS: carvedilol 3.125 mg Tablet PO (08:54)
[2020-01-26 08:55] VITALS: BP 114/76
[2020-01-26] MEDS: aspirin 81 mg EC Tablet PO (08:55)
[2020-01-26] MEDS: losartan 50 mg Tablet 25 MG PO (08:55)
[2020-01-26] MEDS: pantoprazole DR 40 mg Tablet PO (08:55)
[2020-01-26] MEDS: clopidogrel 75 mg Tablet PO (08:55)
[2020-01-26] MEDS: fenofibrate 145 mg Tablet PO (08:55)
--- NOTE | 2020-01-26 09:43 | PC.CHAP ---
Pastoral Care Encounter/Spiritual Assessment Type of Contact [] Declined custom tailor apprentice visit [] Patient/Family/Request visit [] Outpatient visit [] Follow-up visit [] Physician referral [] Code/Alert [x] Routine visit [] Staff referral [] Actively dying [] Patient sleeping [] Family support [] [] Out of room [] Palliative care [] [] Receiving care in room [] Pre-surgical visit [] Trauma [] Long length of stay [] ICU visit [] Other: Relational/Emotional Strength [] Patient feels connected with others/family/visitors/staff [] Distress [] Loneliness/isolation [] Abandonment Spirituality of Patient [] Person of Glenys [] Attends Episcopal of their [place] [] Believes in Prayer [] Reads Bible or Mosque materials [] There are Spiritual issues to be addressed Paste Up Copy Camera Operator Interventions [x] Prayer [x] Active listening [x] Non-anxious presence [x] Spiritual/emotional support [] Crisis/trauma care [] Spiritual counseling [] Bereavement support [] Provided bereavement packet [] Provided Bible/devotional materials [] Provided toy/stuffed animal, coloring book to patient or family member [] Provided Communion [] Anointing/[place] [] Salvation [x] Completed spiritual assessment [] Other: Impact on Illness or Injury [] Angry [] Fearful [] Anxious [] Often cries [] Exhaustion [] Unable to work [] Unable to attend mormonism [] Unable to walk/stand [] Unable to read [] Unable to drive [] Unable to eat/drink [] Unable to sleep [] Unable to be with family [] Patient intubated [] Other: Summary Patient ready dressed and ready to leave... felling better Time spent with patient 10 min
--- NOTE | 2020-01-26 09:54 | PC.NURSE ---
Discharge instructions given per the physician's instructions. Patient verbalized understanding of post angiogram home instructions and medication changes. Patient did not have any further questions. Patient requests that DC medications be sent to [facility] in [place], [place] Pharmacy contacted to request transfer from [facility]. IV has been removed. Patient dressed self. Patient's has been contacted about discharge. No further needs identified at this time.
--- NOTE | 2020-01-26 10:25 | PC.NURSE ---
Stent card with patient.
--- NOTE | 2020-01-26 16:51 | PC.RESP ---
PATIENT DOES NOT HAVE A QUALIFYING HX OF LUNG DISEASE AT THIS TIME AND DOES NOT QUALIFY FOR PULMONARY REHAB.
== END 2020-01-26 11:20 | disposition home or self-care (01) | DRG 246 ==
LOC: ER 18:13 → CSU 21:03
PROVIDERS: Emergency Medicine; Internal Medicine Cardiovascular Disease; Nurse Practitioner Family; Admitting Provider Internal Medicine; PCP Internal Medicine Cardiovascular Disease; Visit Provider Internal Medicine
PROC: 027034Z Dilation of Coronary Artery, One Artery with Drug-eluting Intraluminal Device, Percutaneous Approach (ICD-10-PCS; principal; 2020-01-25 09:00)
PROC: 027034Z Dilation of Coronary Artery, One Artery with Drug-eluting Intraluminal Device, Percutaneous Approach (ICD-10-PCS; 2020-01-25 09:00)
DX: T82.855A Stenosis of coronary artery stent, initial encounter (principal); I21.A1 Myocardial infarction type 2; I50.20 Unspecified systolic (congestive) heart failure; E75.5 Other lipid storage disorders; F17.210 Nicotine dependence, cigarettes, uncomplicated; G47.30 Sleep apnea, unspecified; Z95.5 Presence of coronary angioplasty implant and graft; I25.10 Atherosclerotic heart disease of native coronary artery without angina pectoris; E11.9 Type 2 diabetes mellitus without complications; E78.5 Hyperlipidemia, unspecified; I11.0 Hypertensive heart disease with heart failure; F19.10 Other psychoactive substance abuse, uncomplicated; Y69 Unspecified misadventure during surgical and medical care; Y92.009 Unspecified place in unspecified non-institutional (private) residence as the place of occurrence of the external cause; I25.2 Old myocardial infarction; K21.9 Gastro-esophageal reflux disease without esophagitis; Z79.84 Long term (current) use of oral hypoglycemic drugs; E66.9 Obesity, unspecified; Z68.37 Body mass index [BMI] 37.0-37.9, adult
CPT/HCPCS: 12345; 36415; 36416; 71045; 80048; 80053; 81003; 82962; 83690; 84484; 85025; 85378; 85610; 93005; 93306; 93452; 96372; 99283; C1725; C1769; C1874; C1887; C1894; C9600; J1644; J1650; J2250; J3010; J3490; J7030; Q0163; Q9967

== ENCOUNTER → 2020-05-01 11:19 | Outpatient (BNVA) | payer MEDICAID, SELFPAY | PROVIDERS: PCP Physician Assistant Medical; Visit Provider Internal Medicine Cardiovascular Disease | DX: E78.2 Mixed hyperlipidemia (principal); I10 Essential (primary) hypertension; E11.65 Type 2 diabetes mellitus with hyperglycemia | CPT/HCPCS: 80061; 82977; 83615; 84450; 84460 ==

== ENCOUNTER 2023-03-25 20:53 | Observation (INO) | payer MEDICARE, MEDICAID, SELFPAY ==
[2023-03-25] VITALS (7 sets, daily range): BP systolic 151–155; BP diastolic 95–100; PULSE 104–118; RESP 16–28; TEMP 36.8; O2SAT 94–97; BMI 36.5
--- NOTE | 2023-03-25 20:57 | ECG_ITS ---
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 Measurements Intervals [place] Rate: 115 P: 46 SC: 152 QRS: 45 QRSD: 92 T: 46 QT: 323 QTc: 447 Interpretive Statements SINUS TACHYCARDIA ANTEROSEPTAL MYOCARDIAL INFARCTION , OF INDETERMINATE AGE [40+ ms Q WAVE IN V1-V4] Compared to ECG 01/25/2020 00:18:51 Sinus rhythm no longer present Myocardial infarct finding still present Electronically Signed On 03-25-2023 21:43:13 CDT by Nash Agarwal M.D. [id number]
--- NOTE | 2023-03-25 20:57 | ECG_ITS ---
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 Measurements Intervals [place] Rate: 115 P: 46 PA: 152 QRS: 45 QRSD: 92 T: 46 QT: 323 QTc: 447 Interpretive Statements SINUS TACHYCARDIA ANTEROSEPTAL MYOCARDIAL INFARCTION , OF INDETERMINATE AGE [40+ ms Q WAVE IN V1-V4] Compared to ECG 01/25/2020 00:18:51 Sinus rhythm no longer present Myocardial infarct finding still present Electronically Signed On 03-25-2023 21:41:43 CDT by Nash Agarwal M.D. [id number]
--- NOTE | 2023-03-25 21:11 | XRR_ITS ---
PROCEDURE INFORMATION: Exam: XR Chest Exam date and time: 03/25/2023 9:16 PM Age: 42 years old Clinical indication: Pain; Chest pressure; Additional info: Chest pain TECHNIQUE: Imaging protocol: Radiologic exam of the chest. Views: 1 view. COMPARISON: CR XR chest 1V portable [id number] 01/24/2020 6:05 PM FINDINGS: Lungs: Unremarkable. No consolidation. Pleural spaces: Unremarkable. No pleural effusion. No pneumothorax. Heart/Mediastinum: Unremarkable. No cardiomegaly. Vasculature: Coronary artery calcification versus stent material. Bones/joints: Unremarkable. XR/XR chest 1V portable [id number] IMPRESSION: No acute findings.
--- NOTE | 2023-03-25 21:16 | W.ED.CHESTPA ---
HPI - Chest Pain General: Chief Complaint: Chest Pain Stated Complaint: CHEST PAIN Time Seen by Provider: 03/25/23 21:02 History of Present Illness: Patient presents to the ER with substernal chest pain off and on since this morning. Patient states he has this pain frequently but it is a little more intense today. Patient did take 325 mg aspirin at home. Patient is diaphoretic no nitro was given blood glucose was 218 EMS was not able to get IV access. Patient has had 3 stents placed within the last 5 years with the last one being placed about [address] Coronel. Patient states he has not been taking his medicine correctly this includes anticoagulation. Patient is chest pain-free at the moment. Review of Systems General: Reports: 10 or more systems reviewed and unremarkable except in HPI and below PFSH ED PFSH: Medical History (Updated 03/26/23 @ 02:28 by Anatoliy Dobbins DO) Atherosclerotic heart disease of [place] coronary artery with other forms of angina pectoris Bradycardia Cholelithiasis Chronic GERD Coronary artery disease Diabetes Familial xanthomatosis Heart failure with reduced ejection fraction Hernia Hyperlipemia Hypertension Irritable bowel syndrome Myocardial infarction Stating that he was 19 years of age, cause unknown Nephrolithiasis NSTEMI (non-ST elevated myocardial infarction) Polysubstance abuse Pulmonary nodule 6 mm Sleep apnea Spleen enlarged TIA (transient ischemic attack) Tobacco abuse Surgical History S/P cardiac cath 01/2019 100% occlusion of LAD proximal LAD Stented coronary artery January 2019, stent in LAD January 25, 2020, CHRISTIANNE in in-stent stenosis LAD Family History Other Hyperlipidemia Hypertension Social History Smoking and tobacco status: light tobacco smoker cigarettes [ Other cigarette details: 1 pack/day for last 20 years] Alcohol intake: current Substance/Drug Use: former Household members: spouse Housing: House Physical Exam Const: COMMON NORMALS: no acute distress, average body habitus, patient oriented x3, no limitations, healthy appearing, alert and well nourished HENMT: COMMON NORMALS: normocephalic, atraumatic, hearing grossly normal bilaterally, external ears normal, Normal external nose present and moist oral mucous membranes HEAD & SCALP: normocephalic and atraumatic NOSE: Normal external nose present EXTERNAL EAR: Yes external ears normal Neck/C-Spine: COMMON NORMALS: no JVD Chest: COMMONS NORMALS: normal inspection of the chest and normal palpation of entire chest wall Resp: COMMON NORMALS: normal respiratory effort, No retractions, No use of accessory muscles and clear to auscultation bilaterally AUSCULTATION: clear to auscultation bilaterally Cardio: COMMON NORMALS: no JVD, regular rate, regular rhythm, S1 normal heart sound present, S2 normal heart sound present, No gallops present (Cardio), No clicks present (Cardio), No murmurs present (Cardio) and No rub (Cardio) RATE: regular rate RHYTHM: regular rhythm HEART SOUNDS: S1 normal heart sound present and S2 normal heart sound present GI: COMMON NORMALS: Normal to inspection, nondistended, normoactive bowel sounds present, Soft to palpation, non-tender and No hepatosplenomegaly present PALPATION: Yes Soft to palpation and Yes No hepatosplenomegaly present : COMMON NORMALS: Yes no CVA tenderness BLADDER/KIDNEY EXAM: Yes no CVA tenderness Back/Pelvis: COMMON NORMALS: no CVA tenderness Neuro: COMMON NORMALS: patient oriented x3 SENSORIUM/ORIENTATION: Yes alert Course Vital Signs: Vital signs: Vital Signs Temperature 98.8 F 03/26/23 00:00 Pulse Rate 104 H 03/26/23 00:00 Respiratory Rate 23 H 03/26/23 01:37 Blood Pressure 120/77 03/26/23 00:00 Pulse Oximetry 94 03/26/23 01:37 Oxygen Delivery Me thod Room Air 03/26/23 00:00 MDM - Chest Pain Medical Decision Making Rhythm strip from ambulance and first EKG sent to Dr. Lancaster. Dr. Agarwal said work him up in a standard cardiac fashion but get additional EKGs at [address] Agarwal rounded on patient in the ER and patient was diaphoretic so he decided to take him to the [facility] diagnostic cath. Patient will be loaded with 600 Plavix and we will hold on the heparin drip Differential Diagnosis Unlikely acute massive pulmonary embolism, acute respiratory failure, acute myocardial infarction, cardiac arrest or sudden cardiac Medical Records I reviewed the patient's medical records. Lab Data I reviewed the patient's lab results. 03/25/23 21:00 03/26/23 00:50 Radiology Impressions Chest X-Ray 03/25/23 21:11 IMPRESSION: No acute findings. Laboratory Results WBC 13.94 10^3/uL (3.29-11.43) H 03/25/23 21:00 RBC 6.73 10^6/uL (3.85-5.65) H 03/25/23 21:00 Hgb 19.20 g/dL (11.27-16.99) H 03/25/23 21:00 Hct 56.7 % (37-53) H 03/25/23 21:00 MCV 84.2 fl (82-101) 03/25/23 21:00 MCH 28.5 pg (27-33) 03/25/23 21:00 MCHC 33.9 g/dL (30-55) 03/25/23 21:00 RDW 15.1 % (12.1-15.1) 03/25/23 21:00 Plt Count 312 10^3/cmm (157-399) 03/25/23 21:00 MPV 11.0 fL (7.4-10.4) H 03/25/23 21:00 Neut % (Auto) 67.7 % 03/25/23 21:00 Lymph % (Auto) 23.4 % 03/25/23 21:00 [place] % (Auto) 6.4 % 03/25/23 21:00 Eos % (Auto) 1.2 % 03/25/23 21:00 Baso % (Auto) 0.6 % 03/25/23 21:00 Neut # (Auto) 9.44 10^3/uL (1.8-7.7) H 03/25/23 21:00 Lymph # (Auto) 3.3 10^3/uL (0.8-4.8) 03/25/23 21:00 [place] # (Auto) 0.9 10^3/uL (0.2-0.9) 03/25/23 21:00 Eos # (Auto) 0.2 10^3/uL (0.0-0.8) 03/25/23 21:00 Baso # (Auto) 0.1 10^3/uL (0.0-0.1) 03/25/23 21:00 Nucleated RBC % (auto) 0 % 03/25/23 21:00 Nucleated RBCs # 0.0 /100WBC 03/25/23 21:00 PT 12.70 SECONDS (12.1-14.9) 03/25/23 21:00 INR 0.93 (0.8-1.2) 03/25/23 21:00 Sodium 140 mmol/L (136-145) 03/25/23 21:00 Potassium 3.8 mmol/L (3.5-5.1) 03/25/23 21:00 Chloride 103 mmol/L (98-107) 03/25/23 21:00 Carbon Dioxide 23 mmol/L (22-29) 03/25/23 21:00 Anion Gap 17.8 (5-19) 03/25/23 21:00 BUN 10 mg/dL (6-20) 03/25/23 21:00 Creatinine 0.8 mg/dL (0.7-1.2) 03/25/23 21:00 GFR Calculation 105.5 mL/min (90-130) 03/25/23 21:00 Glucose 241 mg/dL (65-115) H 03/25/23 21:00 Estimat Average Glucose 223 03/25/23 21:00 Hemoglobin A1c 9.4 % (4.0-6.0) H 03/25/23 21:00 Calculated Osmolality 297 mOsm/kg (285-295) H 03/25/23 21:00 Calcium 9.8 mg/dL (8.5-10.5) 03/25/23 21:00 Magnesium 2.0 mg/dL (1.7-2.3) 03/25/23 21:00 Total Bilirubin 0.4 mg/dL (0.15-1.2) 03/25/23 21:00 AST 23 U/L (0-40) 03/25/23 21:00 ALT 32 U/L (0-41) 03/25/23 21:00 Alkaline Phosphatase 129 U/L (40-130) 03/25/23 21:00 Troponin T Gen 5 ng/L 14 ng/L (0-15) 03/25/23 00:50 Troponin T Baseline 14 ng/L (0-15) 03/25/23 21:00 NT-Pro-B Natriuret Pep 101 pg/mL (0-125) 03/25/23 21:00 Total Protein 7.5 g/dL (6.6-8.7) 03/25/23 21:00 Albumin 4.7 g/dL (3.5-5.2) 03/25/23 21:00 Globulin 2.8 g/dL (1.3-4.6) 03/25/23 21:00 Urine Color Yellow (Yellow) 03/25/23 22:10 Urine Appearance Clear (CLEAR) 03/25/23 22:10 Urine pH 5 (5-7) 03/25/23 22:10 Ur Specific [place] 1.015 (1.005-1.030) 03/25/23 22:10 Urine Protein Trace (Negative) 03/25/23 22:10 Urine Glucose (UA) 4+ (Normal) H 03/25/23 22:10 Urine Ketones Negative (Negative) 03/25/23 22:10 Urine Blood Neg (Negative) 03/25/23 22:10 Urine Nitrate Negative (Negative) 03/25/23 22:10 Urine Bilirubin Neg (Negative) 03/25/23 22:10 Urine Urobilinogen Norm mg/dL (Negative) 03/25/23 22:10 Ur Leukocyte Esterase Negative (Negative) 03/25/23 22:10 Urine RBC None /hpf (0-2) 03/25/23 22:10 Urine WBC 0-4 /hpf (0-5) H 03/25/23 22:10 Ur Squamous Epith Cells 0-4 /hpf (0-5) H 03/25/23 22:10 Amorphous Sediment Not Reportable 03/25/23 22:10 Urine Bacteria Trace /hpf (NONE) 03/25/23 22:10 Urine Opiates Screen Negative ng/mL (Negative) 03/25/23 22:10 Ur Barbiturates Screen Negative ng/mL (Negative) 03/25/23 22:10 Ur Phencyclidine Scrn Negative ng/mL (Negative) 03/25/23 22:10 Ur Amphetamines Screen Negative ng/mL (Negative) 03/25/23 22:10 U Benzodiazepines Scrn Negative ng/mL (Negative) 03/25/23 22:10 Urine Cocaine Screen Negative ng/mL (Negative) 03/25/23 22:10 U Marijuana (THC) Screen Negative ng/mL (Negative) 03/25/23 22:10 All radiology interpretation(s) finalized by discharge Discharge Plan Discharge Patient Disposition: Admitted As Inpatient Admit Provider: Nash Agarwal Clinical Impression: Unstable angina Condition: Stable Coding Level of Care Code ED Process 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
[2023-03-25 21:19] LABS: Basophils # 0.1 10^3/uL (0.0-0.1); Basophils % 0.6 %; Eosinophils # 0.2 10^3/uL (0.0-0.8); Eosinophils % 1.2 %; Hematocrit 56.7 % (37-53); Lymphocytes # 3.3 10^3/uL (0.8-4.8); Lymphocytes % 23.4 %; Mean Corpuscular HGB Conc 33.9 g/dL (30-55); Mean Corpuscular Hemoglobin 28.5 pg (27-33); Mean Corpuscular Volume 84.2 fl (82-101); Monocytes # 0.9 10^3/uL (0.2-0.9); Monocytes % 6.4 %; Neutrophils # 9.44 10^3/uL (1.8-7.7); Neutrophils % 67.7 %; Nucleated Red Blood Cells % 0 %; Platelet Count 312 10^3/cmm (157-399); Red Blood Count 6.73 10^6/uL (3.85-5.65); Red Cell Distribution Width 15.1 % (12.1-15.1); White Blood Count 13.94 10^3/uL (3.29-11.43)
[2023-03-25 21:28] LABS: INR 0.93 (0.8-1.2)
[2023-03-25 21:36] LABS: Troponin(5th) Baseline 14 ng/L (0-15)
[2023-03-25 21:45] LABS: Alanine Aminotransferase 32 U/L (0-41); Albumin Level 4.7 g/dL (3.5-5.2); Alkaline Phosphatase 129 U/L (40-130); Anion Gap 17.8 (5-19); Aspartate Amino Transferase 23 U/L (0-40); Blood Urea Nitrogen 10 mg/dL (6-20); Calcium 9.8 mg/dL (8.5-10.5); Carbon Dioxide 23 mmol/L (22-29); Chloride 103 mmol/L (98-107); Globulin 2.8 g/dL (1.3-4.6); Glomerular Filtration Rate 105.5 mL/min (90-130); Glucose 241 mg/dL (65-115); NT Pro B Type Natriuretic Pept 101 pg/mL (0-125); Osmolality Calculated 297 mOsm/kg (285-295); Potassium 3.8 mmol/L (3.5-5.1); Sodium 140 mmol/L (136-145); Total Bilirubin 0.4 mg/dL (0.15-1.2); Total Protein 7.5 g/dL (6.6-8.7)
--- NOTE | 2023-03-25 21:54 | P.HP_ITS ---
Providers/Chief Complaint Admitting Physician: Nash Agarwal MD Primary Care Provider: Lauren Young Chief Complaint: CHEST PAIN History of Present Illness Lobito Webber is a 42 year old male with significant past medical history of diabetes, hypertension, CHF, anterior wall SC who called EMS secondary to chest pain. According to patient he has on and off chest pain frequently however today was more persistent that worried him and he called EMS. It is substernal heaviness. He has been diaphoretic today as well. EKG shows Q waves in anterior/anteroseptal leads with borderline ST elevations not meeting STEMI criteria. Review of Systems General: Reports: 10 or more systems reviewed and unremarkable except in HPI and below Card: Reports: chest pain Medications/Allergies Home Medications Medication Instructions Recorded Confirmed Last Taken Type aspirin 81 mg tablet,delayed 81 mg PO DAILY 07/12/19 01/24/20 01/24/20 History release carvedilol 3.125 mg tablet 3.125 mg PO BID 07/12/19 01/24/20 01/24/20 History clopidogrel 75 mg tablet 75 mg PO DAILY 07/12/19 01/24/20 01/21/20 History furosemide 20 mg tablet 20 mg PO QAM PRN Edema 07/12/19 01/24/20 Unknown History metformin 500 mg tablet 1,000 mg PO DAILY 07/12/19 01/24/20 01/21/20 History nitroglycerin 0.4 mg sublingual 0.4 mg sublingual Q5M 07/12/19 01/24/20 01/24/20 History tablet (Nitrostat) potassium chloride 20 mEq 20 meq PO DAILY 07/12/19 01/24/20 Unknown History tablet,extended release(part/cryst) (Klor-Con M) empagliflozin 10 mg tablet 10 mg PO QAM #90 tabs 09/20/19 01/24/20 01/24/20 Rx (Jardiance) omeprazole 20 mg capsule,delayed 20 mg PO DAILY 01/24/20 01/24/20 01/24/20 H istory release sertraline 50 mg tablet 50 mg PO DAILY 01/24/20 01/24/20 01/24/20 History losartan 25 mg tablet 25 mg PO DAILY #90 tabs 03/01/20 Unknown Rx fenofibrate nanocrystallized 145 145 mg PO DAILY 30 days #30 tabs 05/01/20 Unknown Rx mg tablet atorvastatin 40 mg tablet 80 mg PO BEDTIME #90 tabs 06/11/20 Unknown Rx Allergies Allergy/AdvReac Type Severity Reaction Status Date / Time lisinopril Allergy cough Verified 12/03/20 08:46 PFSH Acute PFSH: Medical History (Updated 03/25/23 @ 21:59 by Nash Agarwal M.D) Atherosclerotic heart disease of [place] coronary artery with other forms of angina pectoris Bradycardia Cholelithiasis Chronic GERD Coronary artery disease Diabetes Familial xanthomatosis Heart failure with reduced ejection fraction Hernia Hyperlipemia Hypertension Irritable bowel syndrome Myocardial infarction Stating that he was 19 years of age, cause unknown Nephrolithiasis NSTEMI (non-ST elevated myocardial infarction) Polysubstance abuse Pulmonary nodule 6 mm Sleep apnea Spleen enlarged TIA (transient ischemic attack) Tobacco abuse Surgical History S/P cardiac cath 01/2019 100% occlusion of LAD proximal LAD Stented coronary artery January 2019, stent in LAD January 25, 2020, CHRISTIANNE in in-stent stenosis LAD Family History Other Hyperlipidemia Hypertension Social History Smoking and tobacco status: light tobacco smoker cigarettes [ Other cigarette details: 1 pack/day for last 20 years] Alcohol intake: current Substance/Drug Use: former Household members: spouse Housing: House Vitals/I&O/Wt Last Vital Signs Temp 98.3 F 03/25/23 20:55 Pulse 114 H 03/25/23 21:50 Resp 16 03/25/23 21:50 BP 155/100 03/25/23 20:55 Pulse Ox 95 03/25/23 21:50 O2 Del Method Room Air 03/25/23 20:55 Weight last 48 hrs Weight 240 lb Physical Exam Narrative: GENERAL: Patient is alert, awake and oriented x3. [] NECK: No jugular vein distension. [] HEENT: No cyanosis. No icterus. No pallor. [] HEART: Regular S1 and S2. No murmur, rub or gallop. [] LUNGS: Clear to auscultate bilaterally. [] CENTRAL NERVOUS SYSTEM: Grossly nonfocal. [] EXTREMITIES: Lower extremities with no edema bilaterally. Data 03/25/23 21:00 03/25/23 21:00 A&P Assessment and plan (1) Unstable angina: (2) Atherosclerotic heart disease of [place] coronary artery with other forms of angina pectoris: (3) TIA (transient ischemic attack): (4) Hypertension: Qualifiers: Hypertension type: essential hypertension Qualified Code(s): I10 - Esse ntial (primary) hypertension (5) Hyperlipemia: Qualifiers: Hyperlipidemia type: mixed hyperlipidemia Qualified Code(s): E78.2 - Mixed hyperlipidemia (6) Heart failure with reduced ejection fraction: (7) Diabetes: Qualifiers: Diabetes mellitus type: type 2 Diabetes mellitus fci insulin use: without fci use Diabetes mellitus complication status: with hyperglycemia Qualified Code(s): E11.65 - Type 2 diabetes mellitus with hyperglycemia (8) Coronary artery disease: Plan Patient has chest pain features consistent with unstable angina. We will proceed with coronary angiogram with possible percutaneous coronary intervention. He received aspirin. We will load with plavix. We will order echocardiogram We will consult medicine team for management of medical issues after the coronary angiogram Attestations Medical Necessity Statement*: Care expected to cross 2 midnight. Patient had presented with chest pain and features consistent with unstable angina. Plan for emergent heart cath. Coding Level of Care Code [facility] Diagnoses Unstable angina I20.0 Atherosclerotic heart disease of [place] coronary artery with other forms of angina pectoris I25.118 TIA (transient ischemic attack) G45.9 Hypertension I10 Hypertension type: essential hypertension Hyperlipemia E78.2 Hyperlipidemia type: mixed hyperlipidemia Heart failure with reduced ejection fraction I50.20 Diabetes E11.65 Diabetes mellitus type: type 2 Diabetes mellitus fci insulin use: without intermediate accountant use Diabetes mellitus complication status: with hyperglycemia Coronary artery disease I25.10
[2023-03-25] MEDS: clopidogrel 300 mg Tablet 600 MG PO (21:56)
--- NOTE | 2023-03-25 21:58 | XACV_ITS ---
Ht: 173 cm Wt: 109 kg BSA: 2.33 m2 Gender: Male : 1980 Any Known Allergies: Other Exam Priority: Routine Procedure(s): Procedure Description: Diagnostic procedure Procedure Description: Left Heart Catheterization Procedure Description: Left ventriculography Procedure Description: Coronary Angiography Diagnostic Cath Status: Urgent Diagnostic Findings * INDICATION: 42 year old male with significant past medical history of diabetes, hypertension, CHF, anterior wall [place] who called EMS secondary to chest pain. According to patient he has on and off chest pain frequently however today was more persistent that worried him and he called EMS. It is substernal heaviness. He has been diaphoretic today as well. EKG shows Q waves in anterior/anteroseptal leads with borderline ST elevations not meeting STEMI criteria. * No significant disease noted in the Left Main, Left Anterior Descending, Right, or Circumflex coronary arteries. Patent prior LAD stent.. * Coronary angiography shows right dominance. Conclusions 1. No significant disease noted in the Left Main, Left Anterior Descending, Right, or Circumflex coronary arteries. Patent prior LAD stent.. 2. Mild left ventricular systolic dysfunction. Ejection fraction of 40%. Recommendations * Aggressive risk factor modification. * Outpatient cardiology follow up in 4 weeks. Interventional RX Recommendation: medical therapy and/or counseling Diagnostic RX Recommendation: medical therapy and/or counseling Ventriculography Ejection Fraction: 40.0 % Pressures Phase:Rest AO : 134 / 92 ( 108 ) @ 5:53:28 PM 140 / 88 ( 108 ) @ 5:53:28 PM 141 / 89 ( 109 ) @ 5:53:28 PM LV : 155 / -24 / 11 @ 5:53:28 PM 158 / -14 / 17 @ 5:53:28 PM 157 / -15 / 14 @ 5:53:28 PM Valves Phase:DefaultPhase AV : 17.0 @ 10:53:28 PM 17.0 @ 10:53:28 PM AV Mean Gradient: 28.0 @ 10:53:28 PM 28.0 @ 10:53:28 PM Clinical Evaluation EBL: 5mL-10mL Procedural Details Procedure Consent Obtained. Pre-Procedure Time Out. Identified patient by full name and date of as verbalized by the patient/guarantor. Does the consent match the physician's order: Yes. Accurate & Complete Informed Consent: Yes. Inpatient/Outpatient History & Physical on Chart: Yes. If H&P is completed, is and addenduem needed: No; If yes, is the addendum complete: N/A. Visualize and Verify Site with Patient/Guarantor: N/A. Relevant Radiology Images available: N/A. Pre-op teaching completed and patient verbalized understanding. The risks, benefits, and alternatives of sedation and/or procedure were discussed by physician. The patient agrees to continue. Procedure started. [facility] Clinical Fraility Score: 3: Managing Well. Marketing Traffic Coordinator Indications: Other--unstable angina. Chest Pain Symptom Assessment: Typical Angina Symptoms. Cardiovascular Instability: No. Correct patient, site and procedure confirmed by cath team. PERRLA. Strong, equal hand corporate affairs manager bilaterally. Lungs clear x 5 lobes. IV Site on Arrival: 20 gauge in the right anticubital. IV Site on Arrival: 20 gauge in the left anticubital. Pre Procedural Pulses: bilateral dorsalis pedis was 2+. Pre Procedural Pulses: bilateral posterior tibial was 2+. Pre Procedural Pulses: bilateral radial was 2+. Oxygen started at 2liters/min via nasal canula. bilateral groins was prepped with chloroprep then draped in the usual sterile fashion. Baseline sample Acquired. HR: 161 BPM. Physician arrived. Equipment: 6F - Femoral. Cardiac Cath Pack. ACIST Manifold Kit Model BT 2000. Heparinized Saline (2 units/mL), 1000 mL bag. Kit, Micropuncture. Physician scrubbed in. Immediate Pre-Procedure Time Out. Correct Patient: Yes; Correct Procedure: Yes; Correct Site: Yes; Correct Patient Position: Yes; Correct Supplies: Yes; Dried Flammable Prep: Yes; Blood Products Available: N/A;. Baseline sample Acquired. HR: 109 BPM. Lidocaine 1% infiltrated to the right groin. Arterial access obtained with micropuncture set. Wire and needle out. Manual pressure held by physician. Arterial access obtained with micropuncture set. Lidocaine 1% infiltrated to the right groin. Unable to advance sheath. 0.035 glide sheath used. A 5 scottish JL4 catheter in over wire. Multiple views taken of left coronary artery. Catheter out. A 5 scott[place] JR4 catheter in over wire. Multiple views taken of right coronary artery. Catheter out. A 5 scottish Angled Pig catheter in over wire. EDP Sample taken: LV 155/-25,11; HR: 112 BPM; SpO2: 93%. LV gram performed in MIRELES @ 10 mL/second for a total of 30 mL. EDP Sample taken: LV 158/-15,17; HR: 112 BPM; SpO2: 93%. Pullback taken: LV 157/-15,14; AO 140/88(108); Mean: 28mmHg, Peak to Peak: 17mmHg, SEP: 12sec/min; HR: 111 BPM; SpO2: 93%. Catheter out. Physician scrubbed out. Sheath(s) sutured into position with 2-0 silk and sterile 4x4's and Op-site applied over the site. No oozing or signs and symptoms of hematoma noted. Arterial sheath flushed and connected to tranducer and pressure bag with heparinized saline. Post Procedure: Pulses reassessed and unchanged. PERRLA. Strong, equal hand corporate affairs manager bilaterally. No VTE prophylaxis required. Total IV fluids: 25 mL. Medication's Wasted: Heparin = 4000 units. Contrast type used: Omnipaque 300 mgI/mL, 500 mL bottle. Post-op diagnosis: non obstructive CAD, patent stents. Complications: none. Estimated blood loss: 5mL-10mL. Responsiveness - Normal response to verbal stimuli; alert and oriented, PERRLA. Airway - Unaffected, no intervention required; spontaneous ventilation. Circulation: W/N/L, pulses unchanged. Nausea/Vomiting: N/A. Procedure completed. Patient transferred by bed to 1st floor. Vital chart was stopped. Access Site Site: Right Femoral artery Sheath Size: 6 Fr Hemostasis Success: Unsuccessful Procedure Medications Start: 10:26 PM Stop: 10:26 PM Medication: Versed Amount: 1 mg Route: I.V. Start: 10:26 PM Stop: 10:26 PM Medication: Fentanyl Amount: 50 mcg Route: I.V. Start: 10:35 PM Stop: 10:35 PM Medication: Versed Amount: 1 mg Route: I.V. Start: 10:35 PM Stop: 10:35 PM Medication: Fentanyl Amount: 25 mcg Route: I.V. Start: 10:49 PM Stop: 10:49 PM Medication: Fentanyl Amount: 25 mcg Route: I.V. I, the attending physician, have reviewed and verified all procedure medications. Yes, all medications given per verbal order History/Risk Factors Hypertension: No Dyslipidemia: No Peripheral Arterial Disease (PAD): No Myocardial Infarction (OR): No Obesity: No Renal Disease: No Prior Interventions PCI: Yes CABG: No Valve Surgery: No Report Signatures Finalized by Nash Agarwal MD on 03/29/2023 11:44 AM
[2023-03-25 22:25] LABS: Add Urine Microscopic? YES; Bacteria Urine TRACE /hpf; Bilirubin Urine Neg (Negative); Blood Urine Neg (Negative); Glucose Urine UA 4+ (Normal); Ketones Urine Negative (Negative); Leukocyte Esterase Urine Negative (Negative); Nitrate Urine Negative (Negative); Protein Urine Trace (Negative); Specific Gravity, Urine 1.015 (1.005-1.030); Squamous Epithelial Cell Urine 0-4 /hpf (0-5); Urine Appearance Clear (CLEAR); Urine Color Yellow (Yellow); Urobilinogen Urine Norm (Negative); WBC Urine 0-4 /hpf (0-5); pH Urine 5 (5-7)
[2023-03-25 22:26] LABS: Add Urine Culture? No
[2023-03-25 22:28] LABS: Amphetamines Screen Urine Negative (Negative); Barbiturates Screen Urine Negative (Negative); Benzodiazepines Screen Urine Negative (Negative); Cocaine Screen Urine Negative (Negative); Opiate Screen Urine Negative (Negative); PCP Screen Urine Negative (Negative); THC Screen Urine Negative (Negative)
--- NOTE | 2023-03-25 23:09 | USCV_ITS ---
Lobito Webber Age: 42 Gender: M : 1980 Exam Date: 03/25/2023 23:25 Ordering Phys: Nash Agarwal M.D ([email or web address]) Technologist: ARNULFO Exam Location: [facility] [place] Indication: unstable angina. s/p cardiac cath today. hx CAD s/p 3 cardiac stents in last 5 years. BP: 155 / 100 HR: 68 Rhythm: Sinus Technical Quality: Fair with [employer]ISON MEASUREMENTS (Male / Female) Normal Values 2D ECHO LV Diastolic Diameter PLAX 4.8 cm 4.2 - 5.9 / 3.9 - 5.3 cm LV Systolic Diameter PLAX 3.8 cm IVS Diastolic Thickness 1.4 cm 0.6 - 1.0 / 0.6 - 0.9 cm IVS Systolic Thickness 1.8 cm LVPW Diastolic Thickness 1.1 cm 0.6 - 1.0 / 0.6 - 0.9 cm LVPW Systolic Thickness 1.9 cm LVOT Diameter 2.4 cm LV Ejection Fraction 2D Teich 43.3 % LV Ejection Fraction MOD 2C 55.5 % LV Ejection Fraction 2C AL 54.8 % LA Diameter 3.9 cm LA Width 3.9 cm LA Height 4.7 cm RA Width 2.8 cm RA Height 4.1 cm Aorta at Sinotubular Diameter 3.5 cm IVC Diameter 1.7 cm M-MODE Aortic Annulus Diameter 4.0 cm LA Ao Ratio MM 1.0 MV E Point Septal Separation 1.2 cm DOPPLER AV Peak Velocity 103.0 cm/s LVOT Peak Velocity 94.0 cm/s AV Area Cont Eq vti 4.0 cm squared AV Area Cont Eq pk 4.1 cm squared MV Peak Velocity 98.0 cm/s MV Area PHT 3.7 cm squared Mitral E to A Ratio 0.7 MV E' Velocity 33.5 cm/s Mitral E to MV E' Ratio 11.0 Mitral E to LV E' Lateral Ratio 11.2 Mitral E to LV E' Septal Ratio 11.0 TV Peak E Velocity 62.0 cm/s PV Peak Velocity 83.0 cm/s RV Acceleration Time 0.1 s RV Ejection Time 0.3 s RV AcT/ET 0.5 FINDINGS Left Ventricle Left ankle is normal in size. LV systolic function is moderately reduced with EF of 35 to 40%. Apical segment is severely hypokinetic to akinetic. Grade 1 diastolic dysfunction. Right Ventricle Grossly normal Right Atrium Not well visualized Left Atrium Normal in size Mitral Valve Structurally normal mitral valve. Aortic Valve Grossly normal Tricuspid Valve Insufficient TR jet to calculate RVSP. Pulmonic Valve Not well visualized Pericardium Normal Aorta Normal in size IVC Not well-visualized CONCLUSIONS Technically limited quality echocardiogram because of poor ultrasonic windows. LV systolic function is moderately reduced with EF of 35 to 40%. Grade 1 diastolic dysfunction Valvular structures not very well visualized however grossly normal. Comapared to prior echocardiogram from 2019, no significant changes are seen Nash Agarwal MD (Electronically Signed) Final Date: 04 April 2023 12:49 S
[2023-03-26] VITALS (7 sets, daily range): BP systolic 120–156; BP diastolic 77–96; PULSE 76–104; RESP 22–29; TEMP 36.6–37.1; O2SAT 93–96
--- NOTE | 2023-03-26 00:50 | PC.NURSE ---
Addendum entered by Kandi Samayoa RN 03/26/23 01:22: Status post cath, sheath in place in right groin. No s/s of bleeding or hematoma. Original Note: Patient to floor from laborer rags @ [id number].
[2023-03-26 01:16] LABS: Partial Thromboplastin Time 29.8 SECONDS (23.9-36.7)
[2023-03-26 01:30] LABS: Troponin T (5th) Once 14 ng/L (0-15)
[2023-03-26] MEDS: fentaNYL 50 mcg/mL INJ 2mL IVP (01:37)
--- NOTE | 2023-03-26 01:44 | P.CONIM_ITS ---
Providers/Reason For Consult Consulting Physician/Specialty*: Henrietta Ansari MD/ Hospitalist Reason for Consult*: medical comorbidities. Attending Physician: Nash Agarwal M.D Primary Care Provider: Lauern Young History of Present Illness History of Present Illness Lobito Webber is a 42 year old male with past medical history of diabetes, hypertension, CHF, prior history of CAD who presented to the hospital with chest pain. He describes the chest pain as being located as in the substernal area, started earlier this morning, associated with diaphoresis and nausea. He was diagnosed with a STEMI per arrival to the emergency room. Taken to the Soaking Pit Operator urgently, no intervention was indicated. He returned to [facility] intermittent ongoing discomfort. Review of Systems General: Reports: 10 or more systems reviewed and unremarkable except in HPI and below Const: Denies: fever(s), chills or body aches Eyes: Denies: change in vision, blurry vision or photophobia ENMT: Reports: hoarseness; Denies: throat pain, enlarged tonsils, odynophagia or nasal congestion Card: Denies: chest pain, palpitations, irregular heart rhythm, edema, swelling of feet/ankles, lightheadedness, pre-syncope, dyspnea on exertion or orthopnea Resp: Denies: dyspnea, productive cough, non-productive cough, wheezing, stridor, pain on inspiration, change in phlegm color, hemoptysis or chest congestion GI: Denies: abdominal pain, nausea, vomiting, hematemesis, coffee ground emesis, dysphagia, heartburn, diarrhea, constipation, GI cramping, change in stool character, hematochezia or melena : Denies: flank pain, dysuria, urinary frequency, urinary urgency, urinary hesitancy or hematuria Musc: Denies: neck pain, back pain, extremity pain, joint swelling, joint warmth or deformity Neuro: Denies: headache(s), numbness in extremities, weakness in extremities, sensory changes, difficulty walking, frequent falls, dizziness, vertigo, behav ioral changes, Slurred speech present or seizure-like activity Psych: Denies: anxiety, depression, suicidal ideation or homicidal ideation Endo: Denies: polyuria, polydipsia, tired all the time, cold intolerance or hot flashes Jordan/Lymph: Denies: easy bruising or easy bleeding Medications/Allergies Home Medications Medication Instructions Recorded Confirmed Last Taken Type aspirin 81 mg tablet,delayed 81 mg PO DAILY 07/12/19 03/26/23 03/25/23 History release clopidogrel 75 mg tablet 75 mg PO DAILY 07/12/19 03/26/23 03/25/23 History furosemide 20 mg tablet 20 mg PO QAM PRN Edema 07/12/19 03/26/23 Unknown History metformin 500 mg tablet 1,000 mg PO DAILY 07/12/19 03/26/23 03/25/23 History nitroglycerin 0.4 mg sublingual 0.4 mg sublingual Q5M 07/12/19 03/26/23 03/25/23 History tablet (Nitrostat) potassium chloride 20 mEq 20 meq PO DAILY 07/12/19 03/26/23 Unknown History tablet,extended release(part/cryst) (Klor-Con M) empagliflozin 10 mg tablet 10 mg PO QAM #90 tabs 09/20/19 03/26/23 03/25/23 Rx (Jardiance) omeprazole 20 mg capsule,delayed 20 mg PO DAILY 01/24/20 03/26/23 03/25/23 His tory release sertraline 50 mg tablet 50 mg PO DAILY 01/24/20 03/26/23 03/25/23 History losartan 25 mg tablet 25 mg PO DAILY #90 tabs 03/01/20 03/26/23 03/25/23 Rx atorvastatin 40 mg tablet 80 mg PO BEDTIME #90 tabs 06/11/20 03/26/23 Unknown Rx Krill Oil ([place] 3 and 6) 03/26/23 Unknown History atorvastatin 80 mg tablet mg 03/26/23 03/26/23 Unknown History bupropion HCl 150 mg tablet,12 hr 150 mg PO 1XD 03/26/23 03/26/23 03/25/23 History sustained-release coenzyme Q10 100 mg capsule 100 mg PO DAILY 03/26/23 03/26/23 Unknown History (CoQ-10) garlic 200 mg tablet 200 mg PO DAILY 03/26/23 03/26/23 Unknown History mecobalamin (vitamin B12) 1,000 1,000 mcg PO 1XD 03/26/23 03/26/23 Unknown History mcg chewable tablet (B12 Active) Allergies Allergy/AdvReac Type Severity Reaction Status Date / Time lisinopril Allergy cough Verified 12/03/20 08:46 Current Medications Generic Name Dose Route Start Last Admin Trade Name Freq PRN Reason Stop Dose Admin Fentanyl 50 mcg 03/25/23 22:53 03/26/23 01:37 Fentanyl 50 Mcg/Ml Inj 2ml IVP 50 mcg PRN PRN Administration PAIN PFSH Acute PFSH: Medical History (Updated 03/26/23 @ 05:55 by Henrietta Ansari MD) Atherosclerotic heart disease of [place] coronary artery with other forms of angina pectoris Bradycardia Cholelithiasis Chronic GERD Coronary artery disease Diabetes Familial xanthomatosis Heart failure with reduced ejection fraction Hernia Hyperlipemia Hypertension Irritable bowel syndrome Myocardial infarction Stating that he was 19 years of age, cause unknown Nephrolithiasis NSTEMI (non-ST elevated myocardial infarction) Polysubstance abuse Pulmonary nodule 6 mm Sleep apnea Spleen enlarged TIA (transient ischemic attack) Tobacco abuse Surgical History S/P cardiac cath 01/2019 100% occlusion of LAD proximal LAD Stented coronary artery January 2019, stent in LAD January 25, 2020, CHRISTIANNE in in-stent stenosis LAD Family History Other Hyperlipidemia Hypertension Social History Smoking and tobacco status: light tobacco smoker cigarettes [ Other cigarette details: 1 pack/day for last 20 years] Alcohol intake: current Substance/Drug Use: former Household members: spouse Housing: House Vitals/I&O/Wt Last Vital Signs Temp 98.8 F 03/26/23 00:00 Pulse 104 H 03/26/23 00:00 Resp 23 H 03/26/23 01:37 BP 120/77 03/26/23 00:00 Pulse Ox 94 03/26/23 01:37 O2 Del Method Room Air 03/26/23 00:00 Weight last 48 hrs Weight 108.862 kg Physical Exam Narrative: General: No acute distress, AO x3 HEENT: PERRLA, pupils bilaterally equal and reactive, pallors not present Chest: Normal vesicular breath sounds, no added sounds, equal good air entry bilaterally CVS: S1-S2 regular, no murmurs, no tachycardia, no gallops, no rubs Abdomen: Soft, nontender, no organomegaly, bowel sounds present Neuro: No focal deficits, no facial deformity, AO x3, power 5/5 in all limbs Data 03/25/23 21:00 03/26/23 00:50 A&P Assessment and plan (1) Chest pain: 42-year-old male with a past medical history as noted above presenting to the hospital today with chest pain. EKG changes initially concerning for STEMI for which it was taken to the Soaking Pit Operator, however no major obstructive lesion was found amenable to intervention. Check CTA to evaluate for possible PE. Chest x-ray without any acute findings. (2) Diabetes: Insulin sliding scale Check HbA1c Qualifiers: Diabetes mellitus type: type 2 Diabetes mellitus paper slitter insulin use: without paper slitter use Diabetes mellitus complication status: with hyperglycemia Qualified Code(s): E11.65 - Type 2 diabetes mellitus with hyperglycemia (3) Coronary artery disease: Continue home medications including aspirin, statin, Coreg, Plavix, fenofibrate, losartan Check CMP with a.m. labs Plan Continue other home medications including Zoloft and bupropion Follow-up with results of CTA chest Consult Attestations Medical Necessity Statement: Per admitting Coding Level of Care Code Acute Code for Chg Fwd Moderate MDM includes number and complexity of problems actively addressed during encounter, amount and/or complexity of data reviewed/ordered and describ ed risk of complication, morbidity or mortality of management as documented Diagnoses Chest pain R07.9 Diabetes E11.65 Diabetes mellitus type: type 2 Diabetes mellitus paper slitter insulin use: without paper slitter use Diabetes mellitus complication status: with hyperglycemia Coronary artery disease I25.10
[2023-03-26 02:04] LABS: Alanine Aminotransferase 30 U/L (0-41); Albumin Level 4.6 g/dL (3.5-5.2); Alkaline Phosphatase 124 U/L (40-130); Anion Gap 17.1 (5-19); Aspartate Amino Transferase 22 U/L (0-40); Blood Urea Nitrogen 10 mg/dL (6-20); Calcium 9.8 mg/dL (8.5-10.5); Carbon Dioxide 26 mmol/L (22-29); Chloride 102 mmol/L (98-107); Globulin 2.8 g/dL (1.3-4.6); Glomerular Filtration Rate 105.5 mL/min (90-130); Glucose 198 mg/dL (65-115); Osmolality Calculated 297 mOsm/kg (285-295); Potassium 4.1 mmol/L (3.5-5.1); Sodium 141 mmol/L (136-145); Total Bilirubin 0.5 mg/dL (0.15-1.2); Total Protein 7.4 g/dL (6.6-8.7)
[2023-03-26 02:14] LABS: Estmated Average Glucose 223; Hemoglobin A1C 9.4 % (4.0-6.0)
--- NOTE | 2023-03-26 05:51 | CT_ITS ---
WS: [id number] CTA OF THE CHEST WITH PULMONARY EMBOLISM PROTOCOL TECHNIQUE: High-resolution contrast enhanced CTA of the chest with coronal and sagittal reformatted i mages with pulmonary embolism protocol. MIP images are also reviewed. CLINICAL INFORMATION: chest pain COMPARISON: None. DLP: 542.[address] scans at [facility] use at least one of these dose optimization techniques: automated e xposure control; mA and/or kV adjustment per patient size (includes targeted exams where dose is matc hed to clinical indication); or iterative reconstruction. FINDINGS: 6 mm RIGHT upper lobe nodule unchanged since 2019. Lungs are well aerated. No acute pulmonary infiltrates. No focal pneumonia or pleural fluid. The proximal main pulmonary arteries are normal. Normal segmental and subsegmental pulmonary arteries. No evidence of pulmonary embolus. Normal caliber thoracic aorta. No mediastinal or hilar lymphadenopathy. No axillary lymphadenopathy. Posterior projecting RIGHT thyroid nodule measuring 12 mm. Hepatomegaly with diffuse fatty filtration. Bulky dense cholelithiasis partially visualized. Tiny eso phageal hiatal hernia. Fatty atrophy of the pancreas. Adrenal glands are normal. IMPRESSION: 1. No evidence of pulmonary embolus. 2. Stable 6 mm nodule in the RIGHT upper lobe. 3. Dense large cholelithiasis. 4. Hepatomegaly with diffuse fatty filtration of the liver.
--- NOTE | 2023-03-26 05:58 | PC.NURSE ---
Removed sheath per protocol at 0155, finished at 0215. Educated patient to stay still and importance of keeping leg still for 6 hours, patient verbalized understanding.
[2023-03-26 07:39] LABS: Glucose Point of Care 201 mg/dL (70-110)
[2023-03-26] MEDS: perflutren protein-a microsphr 0.22 mg/mL SDV 3 mL IV (07:55)
[2023-03-26] MEDS: losartan 50 mg Tablet 25 MG PO (09:06)
[2023-03-26] MEDS: sertraline 50 mg Tablet PO (09:06)
[2023-03-26] MEDS: fenofibrate 145 mg Tablet PO (09:07)
[2023-03-26] MEDS: pantoprazole DR 40 mg Tablet PO (09:07)
[2023-03-26] MEDS: aspirin 81 mg EC Tablet PO (09:07)
[2023-03-26] MEDS: carvedilol 3.125 mg Tablet PO (09:07)
[2023-03-26] MEDS: insulin lispro 100 unit/1 mL SUBCUT (09:07)
[2023-03-26] MEDS: clopidogrel 75 mg Tablet PO (09:07)
[2023-03-26] MEDS: buPROPion SR (12 HR) 150 mg Tablet PO (09:07)
[2023-03-26 11:26] LABS: Glucose Point of Care 228 mg/dL (70-110)
--- NOTE | 2023-03-26 12:20 | PC.NURSE ---
Discharge Note Patient discharged to [home] via [w/c] accompanied by [DIAMOND DIE DRILLER]. Discharge instructions reviewed with patient and/or account services representative. Mobile pharmacy medications and/or prescriptions provided. Belongings/home medications returned.
--- NOTE | 2023-03-26 12:49 | P.DS_ITS ---
Discharge Providers Date of Admission: 03/25/23 23:33 Date of Discharge: March 26, 2023 Attending Provider at Admission: Nash Agarwal M.D Attending Provider at Discharge: Nash Agarwal M.D Consults: Dr Ansari Primary Care Provider: Lauren Young Diagnoses at Discharge Discharge Diagnosis (1) Chest pain: Status: Inactive (2) Diabetes: Status: Inactive Qualifiers: Diabetes mellitus complication status: with hyperglycemia Diabetes mellitus halfway insulin use: without lead principal technical architect use Diabetes mellitus type: type 2 Qualified Code(s): E11.65 - Type 2 diabetes mellitus with hyperglycemia (3) Coronary artery disease: Status: Inactive Reason for Visit Reason for Visit: CHEST PAIN Brief History: 42 year old male with significant past medical history of diabetes, hypertension, CHF, anterior wall ND who called EMS secondary to chest pain.? According to patient he has on and off chest pain frequently however today was more persistent that worried him and he called EMS.? It is substernal heaviness.? He has been diaphoretic today as well. EKG shows Q waves in anterior/anteroseptal leads with borderline ST elevations not meeting STEMI criteria. Hospital Course Hospital Course Coronary angiogram was performed that showed patent coronary arteries and prior stent. CTA did not reveal pulmonary embolism. His chest pain improved. We consulted medicine team for management of diabetes. He was observed overnight and was discharged home in a stable condition. Physical Exam Narrative: GENERAL: Patient is alert, awake and oriented x3. [] NECK: No jugular vein distension. [] HEENT: No cyanosis. No icterus. No pallor. [] HEART: Regular S1 and S2. No murmur, rub or gallop. [] LUNGS: Clear to auscultate bilaterally. [] CENTRAL NERVOUS SYSTEM: Grossly nonfocal. [] EXTREMITIES: Lower extremities with no edema bilaterally. 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 echo wo/w contrast [id number] Routine Ultrasound 03/25/23 23:09 Taken Radiology Impressions Chest X-Ray 03/25/23 21:11 IMPRESSION: No acute findings. Laboratory Results WBC 13.94 10^3/uL (3.29-11.43) H 03/25/23 21:00 RBC 6.73 10^6/uL (3.85-5.65) H 03/25/23 21:00 Hgb 19.20 g/dL (11.27-16.99) H 03/25/23 21:00 Hct 56.7 % (37-53) H 03/25/23 21:00 MCV 84.2 fl (82-101) 03/25/23 21:00 MCH 28.5 pg (27-33) 03/25/23 21:00 MCHC 33.9 g/dL (30-55) 03/25/23 21:00 RDW 15.1 % (12.1-15.1) 03/25/23 21:00 Plt Count 312 10^3/cmm (157-399) 03/25/23 21:00 MPV 11.0 fL (7.4-10.4) H 03/25/23 21:00 Neut % (Auto) 67.7 % 03/25/23 21:00 Lymph % (Auto) 23.4 % 03/25/23 21:00 [place] % (Auto) 6.4 % 03/25/23 21:00 Eos % (Auto) 1.2 % 03/25/23 21:00 Baso % (Auto) 0.6 % 03/25/23 21:00 Neut # (Auto) 9.44 10^3/uL (1.8-7.7) H 03/25/23 21:00 Lymph # (Auto) 3.3 10^3/uL (0.8-4.8) 03/25/23 21:00 [place] # (Auto) 0.9 10^3/uL (0.2-0.9) 03/25/23 21:00 Eos # (Auto) 0.2 10^3/uL (0.0-0.8) 03/25/23 21:00 Baso # (Auto) 0.1 10^3/uL (0.0-0.1) 03/25/23 21:00 Nucleated RBC % (auto) 0 % 03/25/23 21:00 Nucleated RBCs # 0.0 /100WBC 03/25/23 21:00 PT 12.70 SECONDS (12.1-14.9) 03/25/23 21:00 INR 0.93 (0.8-1.2) 03/25/23 21:00 APTT 29.8 SECONDS (23.9-36.7) 03/26/23 00:50 Sodium 141 mmol/L (136-145) 03/26/23 00:50 Potassium 4.1 mmol/L (3.5-5.1) 03/26/23 00:50 Chloride 102 mmol/L (98-107) 03/26/23 00:50 Carbon Dioxide 26 mmol/L (22-29) 03/26/23 00:50 Anion Gap 17.1 (5-19) 03/26/23 00:50 BUN 10 mg/dL (6-20) 03/26/23 00:50 Creatinine 0.8 mg/dL (0.7-1.2) 03/26/23 00:50 GFR Calculation 105.5 mL/min (90-130) 03/26/23 00:50 Glucose 198 mg/dL (65-115) H 03/26/23 00:50 POC Glucose 228 mg/dL (70-110) H 03/26/23 11:18 Estimat Average Glucose 223 03/25/23 21:00 Hemoglobin A1c 9.4 % (4.0-6.0) H 03/25/23 21:00 Calculated Osmolality 297 mOsm/kg (285-295) H 03/26/23 00:50 Calcium 9.8 mg/dL (8.5-10.5) 03/26/23 00:50 Magnesium 2.0 mg/dL (1.7-2.3) 03/25/23 21:00 Total Bilirubin 0.5 mg/dL (0.15-1.2) 03/26/23 00:50 AST 22 U/L (0-40) 03/26/23 00:50 ALT 30 U/L (0-41) 03/26/23 00:50 Alkaline Phosphatase 124 U/L (40-130) 03/26/23 00:50 Troponin T Gen 5 ng/L 14 ng/L (0-15) 03/25/23 00:50 Troponin T Baseline 14 ng/L (0-15) 03/25/23 21:00 NT-Pro-B Natriuret Pep 101 pg/mL (0-125) 03/25/23 21:00 Total Protein 7.4 g/dL (6.6-8.7) 03/26/23 00:50 Albumin 4.6 g/dL (3.5-5.2) 03/26/23 00:50 Globulin 2.8 g/dL (1.3-4.6) 03/26/23 00:50 Urine Color Yellow (Yellow) 03/25/23 22:10 Urine Appearance Clear (CLEAR) 03/25/23 22:10 Urine pH 5 (5-7) 03/25/23 22:10 Ur Specific [place] 1.015 (1.005-1.030) 03/25/23 22:10 Urine Protein Trace (Negative) 03/25/23 22:10 Urine Glucose (UA) 4+ (Normal) H 03/25/23 22:10 Urine Ketones Negative (Negative) 03/25/23 22:10 Urine Blood Neg (Negative) 03/25/23 22:10 Urine Nitrate Negative (Negative) 03/25/23 22:10 Urine Bilirubin Neg (Negative) 03/25/23 22:10 Urine Urobilinogen Norm mg/dL (Negative) 03/25/23 22:10 Ur Leukocyte Esterase Negative (Negative) 03/25/23 22:10 Urine RBC None /hpf (0-2) 03/25/23 22:10 Urine WBC 0-4 /hpf (0-5) H 03/25/23 22:10 Ur Squamous Epith Cells 0-4 /hpf (0-5) H 03/25/23 22:10 Amorphous Sediment Not Reportable 03/25/23 22:10 Urine Bacteria Trace /hpf (NONE) 03/25/23 22:10 Urine Opiates Screen Negative ng/mL (Negative) 03/25/23 22:10 Ur Barbiturates Screen Negative ng/mL (Negative) 03/25/23 22:10 Ur Phencyclidine Scrn Negative ng/mL (Negative) 03/25/23 22:10 Ur Amphetamines Screen Negative ng/mL (Negative) 03/25/23 22:10 U Benzodiazepines Scrn Negative ng/mL (Negative) 03/25/23 22:10 Urine Cocaine Screen Negative ng/mL (Negative) 03/25/23 22:10 U Marijuana (THC) Screen Negative ng/mL (Negative) 03/25/23 22:10 Vitals Last Vital Signs Temp 97.8 F 03/26/23 04:00 Pulse 91 03/26/23 10:58 Resp 23 H 03/26/23 10:58 BP 156/96 03/26/23 10:58 Pulse Ox 94 03/26/23 10:58 O2 Del Method Room Air 03/26/23 07:33 Discharge Plan Discharge Patient Disposition: Home Condition: Stable Prescriptions: Continued nitroglycerin [Nitrostat] 0.4 mg tablet, sublingual 0.4 mg SUBLINGUAL Q5M Rx Instructions: was given a total of 2 tabs in ambulance potassium chloride [Klor-Con M20] 20 mEq tablet,ER particles/crystals 20 meq PO QPM clopidogrel 75 mg tablet 75 mg PO DAILY furosemide 20 mg tablet 20 mg PO QAM PRN (Reason: Edema) aspirin 81 mg tablet,delayed release (DR/EC) 81 mg PO DAILY Rx Instructions: took 3 today Jardiance 10 mg tablet 10 mg PO QAM Qty: 90 3RF losartan 25 mg tablet 25 mg PO DAILY Qty: 90 3RF omeprazole 20 mg capsule,delayed release(DR/EC) 20 mg PO BEDTIME bupropion HCl 150 mg tablet sustained-release 12 hr 150 mg PO 1XD atorvastatin 80 mg tablet 80 mg PO BEDTIME coenzyme Q10 [CoQ-10] 100 mg Capsule 100 mg PO DAILY garlic 200 mg Tablet 200 mg PO DAILY mecobalamin (vitamin B12) [B12 Active] 1,000 mcg Tablet,Chewable 1,000 mcg PO 1XD Krill Oil ([place] 3 and 6) 500 mg 500 mg PO DAILY sertraline 100 mg tablet 100 mg PO DAILY fenofibrate nanocrystallized 145 mg tablet 145 mg PO DAILY Held metformin 500 mg tablet extended release 24 hr 1,500 mg PO DAILY Hold Instructions: Resume on 03/28/23. You can start using it starting Wednesday we are holding it because recently got contrast Discharge Orders: Discharge Order (Routine); Ordered 03/26/23 Ordered By: Javier Handy Referrals: Jack Ang [Referring] - 03/30/23 2:00 pm (To discuss Lantus insulin use) Nash Agarwal M.D [Physician] - (Your Dr. Agarwal follow up appointment will be scheduled during your Glenny Yarbrough appointment. Thank you.) Glenny Yarbrough FNP [Nurse Practitioner] - 04/07/23 10:45 am Discharge Diet: Diabetic Patient Instructions: Type 2 Diabetes, Heart Failure (DC), Stress (DC), CHF Stoplight, Opioid Safety, Post Angiogram Home Care Instructions, Post Heart Attack Stoplight Discharge Attestations Time Spent in Discharge Care*: less than 30 min Quality Metrics Clinical Quality Measures [ No reported AMI, CVA or VTE this stay] Coding Level of Care Code Acute Code for Chg Fwd Diagnoses Chest pain R07.9 Diabetes E11.65 Diabetes mellitus complication status: with hyperglycemia Diabetes mellitus halfway insulin use: without lead principal technical architect use Diabetes mellitus type: type 2 Coronary artery disease I25.10
== END 2023-03-26 12:19 | disposition home or self-care (01) ==
LOC: ER 21:47 → CCL 21:48 → CSU 23:37
PROVIDERS: Student in an Organized Health Care Education/Training Program; Admitting Provider Internal Medicine; Emergency Provider Emergency Medicine; PCP Nurse Practitioner Family; Visit Provider Internal Medicine
DX: I25.118 Atherosclerotic heart disease of native coronary artery with other forms of angina pectoris (principal); E11.65 Type 2 diabetes mellitus with hyperglycemia; I25.10 Atherosclerotic heart disease of native coronary artery without angina pectoris; I11.0 Hypertensive heart disease with heart failure; I50.20 Unspecified systolic (congestive) heart failure; R91.1 Solitary pulmonary nodule; K80.20 Calculus of gallbladder without cholecystitis without obstruction; K76.0 Fatty (change of) liver, not elsewhere classified; Z79.82 Long term (current) use of aspirin; E78.2 Mixed hyperlipidemia; I25.2 Old myocardial infarction; G47.30 Sleep apnea, unspecified; Z86.73 Personal history of transient ischemic attack (TIA), and cerebral infarction without residual deficits; F17.210 Nicotine dependence, cigarettes, uncomplicated; Z95.5 Presence of coronary angioplasty implant and graft; G45.9 Transient cerebral ischemic attack, unspecified
CPT/HCPCS: 36415; 36416; 71045; 71275; 80053; 80306; 81001; 81015; 82962; 83036; 83735; 83880; 84484; 85025; 85610; 85730; 93005; 93458; 96365; 96372; 99152; 99285; C1769; C1887; C1894; C8929; G0378; J1644; J1815; J2250; J3010; J7030; Q9956; Q9967